=== PATIENT | male | born 1985 | race Caucasian/White ===

== ENCOUNTER 2020-06-28 23:03 | Emergency (ER) | payer MEDICAID, SELFPAY ==
[2020-06-28 23:29] VITALS: BP 125/94; PULSE 82; RESP 17; TEMP 37.1; O2SAT 96; BMI 27.2
[2020-06-28 23:51] LABS: Basophils # 0.1 K/mm3 (0-0.2); Basophils % 0.5 % (0.1-2.0); Eosinophils # 0.2 K/mm3 (0.0-0.4); Eosinophils % 1.4 % (0.1-12.0); Hematocrit 52.8 % (42.0-52.0); Hemoglobin 17.6 g/dL (14.1-18.0); Lymphocytes # 1.9 K/mm3 (0.7-4.5); Lymphocytes % 14.4 % (10-50); Mean Corpuscular HGB Conc 33.3 g/dL (31.8-35.4); Mean Corpuscular Hemoglobin 30.5 pg (27.0-31.2); Mean Corpuscular Volume 91.6 fl (80-94); Mean Platelet Volume 7.7 fl (7.4-10.4); Monocytes # 0.6 K/mm3 (0.1-1.0); Monocytes % 4.4 % (1.7-9.3); Neutrophils # 10.4 K/mm3 (1.8-7.8); Neutrophils % 79.2 % (37.0-80.0); Platelet Count 375 K/mm3 (142-424); Red Blood Count 5.76 M/mm3 (4.60-6.20); Red Cell Distribution Width 13.4 % (11.5-17.5); White Blood Count 13.2 K/mm3 (4.8-10.8)
[2020-06-28 23:56] LABS: Alanine Aminotransferase 93 U/L (12-78); Albumin Level 5.2 g/dl (3.5-5.0); Alkaline Phosphatase 128 U/L (38-126); Amylase 62 U/L (30-110); Anion Gap 16.2 mEq/L (5-15); Aspartate Amino Transferase 45 U/L (17-59); Bilirubin,Direct 0.1 mg/dl (0.0-0.4); Bilirubin,Indirect 0.7 mg/dL (0.0-0.9); Bilirubin,Total 0.8 mg/dl (0.2-1.3); Bilirubin,Unconjugated 0.7 mg/dL (0.0-1.1); Blood Urea Nitrogen 14 mg/dl (9-20); Calcium 10.6 mg/dl (8.4-10.2); Carbon Dioxide 26 mmol/L (22.0-30.0); Chloride 104 mmol/L (98-107); Creatinine Clearance Estimated 104 mL/min (50-200); Estimated Glomerular Filt Rate 69 ml/min (>60); GFR (African American) 83 ML/MIN (>60); Glucose 137 mg/dl (74-100); Lipase 89 U/L (23-300); Potassium 4.2 mmoL/L (3.5-5.1); Sodium 142 mmol/L (136-145); Total Protein,Serum 9.4 g/dl (6.3-8.2)
--- NOTE | 2020-06-29 01:08 | HMH.EDGENADL ---
ED Disposition Clinical Impression: Calculus of kidney Disposition: Home, Self-Care Condition on Discharge: Good Instructions: DI for Acute Abdominal Pain Prescriptions: methocarbamoL [Methocarbamol 500mg Tablet] 500 mg PO Q8HP PRN #10 tab PRN Reason: pain Transmission Status: Received by [facility] # Tamsulosin HCl [Flomax 0.4mg capsule] 0.4 mg PO HS #5 cap Transmission Status: Received by [facility] # Ketorolac Tromethamine [Toradol 10mg tablet] 10 mg PO Q6H 3 Days #10 tab Transmission Status: Received by [facility] # Referrals: Alex Rendon MD [Primary Care Provider] - - Critical Care Critical Care Time: No Attestation: On 06/28/20, the high probability of a clinically significant, sudden or life threatening deterioration of the following system(s) required my full and direct attention, intervention and personal management. The time I documented below is in addition to time spent performing reported procedures but includes the following listed in this critical care notation. Medical Decision Making - Medical Records Medical records reviewed: Yes: I reviewed the patient's medical records. - Nael Inquiry Pt receiving controlled substance: No Vital Signs: 06/28/20 23:29 Temperature 98.7 F Temperature Source Oral Pulse Rate [Right Brachial] 82 Respiratory Rate 17 Blood Pressure [Right Arm] 125/94 H Blood Pressure Mean [Right Arm] 104 Blood Pressure Source [Right Arm] Automatic Cuff Blood Pressure Position [Right Arm] Sitting 02 Sat by Pulse Oximetry 96 Oxygen Delivery Method Room Air - Lab Data Lab Results 06/28/20 23:41: WBC 13.2 H, RBC 5.76, Hgb 17.6, Hct 52.8 H, MCV 91.6, MCH 30.5, MCHC 33.3, RDW 13.4, Plt Count 375, MPV 7.7, Neut % (Auto) 79.2, Lymph % (Auto) 14.4, [place] % (Auto) 4.4, Eos % (Auto) 1.4, Baso % (Auto) 0.5, Neut # (Auto) 10.4 H, Lymph # (Auto) 1.9, [place] # (Auto) 0.6, Eos # (Auto) 0.2, Baso # (Auto) 0.1 06/28/20 23:41: Sodium 142, Potassium 4.2, Chloride 104, Carbon Dioxide 26, Anion Gap 16.2 H, BUN 14, Creatinine 1.20, Estimated Creat Clear 104, Estimated GFR 69, Est GFR ( Amer) 83, Glucose 137 H, Calcium 10.6 H, Total Bilirubin 0.8, Direct Bilirubin 0.1, Conjugated Bilirubin 0.0, Indirect Bilirubin 0.7, Unconjugated Bilirubin 0.7, AST 45, ALT 93 H, Alkaline Phosphatase 128 H, Total Protein 9.4 H, Albumin 5.2 H, Amylase 62, Lipase 89 06/29/20 01:57: Urine Color Yellow, Urine Appearance Clear, Urine pH 5.0, Ur Specific [place] 1.015, Urine Protein Negative, Urine Glucose (UA) Negative, Urine Ketones Negative, Urine Blood 2+, Urine Nitrate Negative, Urine Bilirubin Negative, Urine Urobilinogen 0.2, Ur Leukocyte Esterase Negative, Urine RBC 5-10, Amorphous Sediment Trace Result diagrams: 06/28/20 23:41 06/28/20 23:41 Orders (Tests/Meds): ED MEDICATIONS Generic Name Dose Route Start Last Admin Trade Name Freq PRN Reason Stop Dose Admin Sodium Chloride 1,000 mls @ 999 mls/hr 06/28/20 23:45 06/28/20 23:58 Sod Chlor 0.9% 1000ml Bag IV 06/29/20 00:45 999 mls/hr .Q1H1M SARAH Administration Sodium Chloride 8 ml 06/28/20 23:38 Sodium Chloride 0.9% 10ml Vial IV 07/28/20 23:37 NEEDED PRN dilute pepcid Discontinued Medications Generic Name Dose Route Start Last Admin Trade Name Freq PRN Reason Stop Dose Admin Famotidine 20 mg 06/28/20 23:38 06/28/20 23:57 Famotidine 20mg/2ml Vial IV 06/28/20 23:39 20 mg ONCE ONE Administration Iopamidol 75 ml 06/29/20 01:05 06/29/20 01:06 Iopamidol-370 (76%);100ml Bottle IV 06/29/20 01:06 75 ml ONCE ONE Administration Ketorolac Tromethamine 30 mg 06/28/20 23:38 06/28/20 23:57 Ketorolac 30mg/Ml Vial IV 06/28/20 23:39 30 mg ONCE ONE Administration Metoclopramide HCl 10 mg 06/28/20 23:38 06/28/20 23:57 Metoclopramide Hcl 10mg/2ml Vial IVP 06/28/20 23:39 10 mg ONCE ONE Administration Ondansetron HCl 4 mg 06/17
[2020-06-29 02:01] LABS: Microscopic, Urine URINE MICROSCOPIC (MICROSCOPIC)
[2020-06-29 02:07] LABS: Appearance,Urine CLEAR (Clear); Bilirubin,Urine Negative (Negative); Blood, Urine 2+ (Negative); Color,Urine YELLOW (Yellow); Glucose,Urine (UA) Negative (Negative); Ketones,Urine Negative (Negative); Leukocyte Esterase,Urine Negative (Negative); Nitrate,Urine Negative (Negative); Protein,Urine Negative (Negative); Specific Gravity, Urine 1.015 (1.005-1.030); Urobilinogen,Urine 0.2 EU/dl (0.2)
[2020-06-29 02:11] LABS: Amorphous Sediment,Urine Trace /lpf
[2020-06-29 02:15] VITALS: BP 124/79; PULSE 81; RESP 14; TEMP 36.5; O2SAT 97
--- NOTE | 2020-06-29 23:38 | CT_ITS ---
Procedure: CT ABDOMEN PELVIS W CON Referring Doctor: Andi Gómez Patient Age:35Y CLINICAL INDICATION: abd pain Left lower quadrant pain. Nausea, vomiting, diarrhea, COMPARISON: CT ABDPELW/O CT ABD PELVIS W/O CONTRAST from 09/17/2015 TECHNIQUE: IV contrast utilized-75 cc Isovue 370 No oral contrast given 1 Helical axial images obtained with sagittal and coronal reformats. All CT scans at the facility use one or more dose reduction, viz: automated exposure control, ma/kV adjustment per patient size (including targeted exams where dose is matched to indication, i.e. head), or iterative reconstruction technique. FINDINGS: Lower thorax: Minimal dependent atelectasis. Minimal linear scarring and atelectasis left CP angle Stable relative elevation right hemidiaphragm versus left Limited images heart heart show artifact from the pacer wire with heart upper normal in size Mild stable gynecomastia bilaterally ABDOMEN: Liver: Diffuse hepatic steatosis/fatty changes liver. No masses or biliary dilatation. No abnormal areas of enhancement Portal vein satisfactory Gallbladder: Nondistended. No radio opaque stones. Common duct normal Pancreas: . unremarkable, stable Spleen: unremarkable normal size Adrenals: unremarkable ------ tract . Left Kidney: Left Obstructive Uropathy: Left hydronephrosis/moderate left pelvocaliectasis due to a 7.5 mm x 8 mm X 10.5 mm length obstructing stone at the left UPJ. Also a tiny nonobstructive stable 3.5 mm times 2 mm calculus at upper pole left noted the The left ureter is otherwise unremarkable Right Kidney no calculi nor obstruction. Right ureter unremarkable. Note hyperdense blush to the renal pyramids right kidney but not the left-reflecting the delayed nephrogram and excretion on left a due to the obstructive uropathy.. PELVIS:. Urinary bladder: Nondistended. No obvious stones or masses. Reproductive unremarkable; prostate normal size. No free fluid pelvis; no adenopathy. ----GI tract --- Stomach and small bowel: Satisfactory. Nondistended. No obvious mass or thickening. Distal esophagus: Note additional fat seen today along the left left aspect of the distal esophagus and GE junction which may reflect developing hiatal hernia with fat passing through it. Appendix well visualized-the partial retrocecal appendix appears normal with no appendicitis There is note of a tiny calcified appendicolith 2.3 mm at base of the appendix is again noted as was seen 2016. Large bowel: Moderate stool throughout the right colon. Only a few scattered diverticuli. Upper normal wall thickness at proximal sigmoid and distal descending colon most likely reflect lack of distension Peritoneum: No abnormal fluid collections. No obvious inflammatory changes. No free air. Lymph nodes: No enlarged lymph nodes apparent. Vasculature: No eviden the the ce of abdominal aortic aneurysm. No retroperitoneal hemorrhage evident. Bones: No acute fracture the sclerotic margin bone lesion involving proximal femur and extending up to the base of lesser trochanter is again noted and appears similar to 2016 IMPRESSION: 1..Obstructive uropathy on left. Moderate left hydronephrosis due to a 8 mm diameter X 10.5 Mm length stone at the left UPJ 2..Additional tiny 2 x 3 mm nonobstructive calculus midportion left kidney 3.. Other stable observations: .. Normal appendix with stable tiny appendicolith at its base .. Few diverticuli throughout the colon with no diverticulitis evident. .. Hepatic steatosis Dictated by: Camden Garrett MD 06/29/2020 09:33 Camden Garrett MD in [place] 06/29/2020 09:33
== END 2020-06-29 02:18 | disposition home or self-care (01) ==
PROVIDERS: Emergency Provider Emergency Medicine; PCP Family Medicine
DX: N20.0 Calculus of kidney (principal); I10 Essential (primary) hypertension; K21.9 Gastro-esophageal reflux disease without esophagitis; F41.8 Other specified anxiety disorders; E78.5 Hyperlipidemia, unspecified; Z88.0 Allergy status to penicillin; Z88.2 Allergy status to sulfonamides; Z79.899 Other long term (current) drug therapy
CPT/HCPCS: 74177; 80048; 80076; 81001; 82150; 83690; 85025; 96375; 99283; J2405; Q9967

== ENCOUNTER → 2020-07-05 13:41 | Outpatient (CLI) | payer MEDICAID, SELFPAY ==
--- NOTE | 2020-07-05 13:45 | XR_ITS ---
PROCEDURE: XR KUB CLINICAL INDICATION: kidney stone COMPARISON: CT CT ABDOMEN PELVIS W CON from 06/29/2020 FINDINGS: Gas pattern-The bowel gas pattern is unremarkable. No obvious obstruction. The oval 7 mm calculus is again seen projecting over the pelvis left kidney and likely has not moved inferiorly when compared to the position on the recent CT scan 06/29/2020. There is a stable small calculus left-side of the lower pelvis likely a phlebolith. IMPRESSION: No significant change in the position of the left UPJ calculus Dictated by: Dr. Jony Redd MD 07/05/2020 14:58 Dr. Jony Redd MD in [place] 07/05/2020 14:58
== END ==
PROVIDERS: PCP Family Medicine; Visit Provider Urology
DX: N20.0 Calculus of kidney (principal)
CPT/HCPCS: 74018

== ENCOUNTER → 2020-07-25 11:11 | Outpatient (CLI) | payer MEDICAID, SELFPAY ==
[2020-07-25 11:48] LABS: Basophils # 0.1 K/mm3 (0-0.2); Basophils % 0.8 % (0.1-2.0); Eosinophils # 0.4 K/mm3 (0.0-0.4); Eosinophils % 4.6 % (0.1-12.0); Hematocrit 52.3 % (42.0-52.0); Hemoglobin 16.4 g/dL (14.1-18.0); Lymphocytes # 2.8 K/mm3 (0.7-4.5); Lymphocytes % 34.7 % (10-50); Mean Corpuscular HGB Conc 31.3 g/dL (31.8-35.4); Mean Corpuscular Hemoglobin 29.9 pg (27.0-31.2); Mean Corpuscular Volume 95.6 fl (80-94); Mean Platelet Volume 8.1 fl (7.4-10.4); Monocytes # 0.6 K/mm3 (0.1-1.0); Neutrophils # 4.3 K/mm3 (1.8-7.8); Neutrophils % 52.8 % (37.0-80.0); Platelet Count 313 K/mm3 (142-424); Red Blood Count 5.48 M/mm3 (4.60-6.20); Red Cell Distribution Width 13.2 % (11.5-17.5); White Blood Count 8.1 K/mm3 (4.8-10.8)
[2020-07-25 12:10] LABS: Anion Gap 12.6 mEq/L (5-15); Blood Urea Nitrogen 17 mg/dl (9-20); Calcium 9.7 mg/dl (8.4-10.2); Carbon Dioxide 29 mmol/L (22.0-30.0); Chloride 105 mmol/L (98-107); Estimated Glomerular Filt Rate 76 ml/min (>60); GFR (African American) 92 ML/MIN (>60); Glucose 94 mg/dl (74-100); Potassium 4.6 mmoL/L (3.5-5.1); Sodium 142 mmol/L (136-145)
[2020-07-25 12:26] LABS: Coronavirus 19 IgG Antibody Negative (Negative); Coronavirus 19 IgM Antibody Negative (Negative)
== END ==
PROVIDERS: Visit Provider Urology
DX: Z01.818 Encounter for other preprocedural examination (principal); Z11.52 Encounter for screening for COVID-19; N20.0 Calculus of kidney
CPT/HCPCS: 36415; 80048; 85025; 86328

== ENCOUNTER 2020-07-26 07:12 | Day surgery (SDC) | payer MEDICAID, SELFPAY ==
[2020-07-24 12:24] VITALS: BMI 28.7
[2020-07-26] VITALS (11 sets, daily range): BP systolic 102–123; BP diastolic 65–85; PULSE 79–95; RESP 12–18; TEMP 36.1–43; O2SAT 94–98
--- NOTE | 2020-07-26 09:40 | HMH.ANESCL ---
[facility] Anesthesia Checklist - Structural Data Admitted From: Home Planned Operative Procedure/s: eswl Consent for Planned Operative Procedure(s) Verified: Yes - Additional verifications Anesthesia Reactions: No Hx Blood Transfusions: No Blood Transfusion Reaction: No - Airway Assessment C-Spine Mobility Assessed: Yes TMJ Mobility Assessed: Yes Dentition: Good Dentition - Neurological Assessment Level of Consciousness: Awake, Alert, Appropriate - Anesthesia Plan Anesthesia Risk discussed: Yes Anesthesia Plan: Verified ASA Class: III Anesthesia Type: General [facility] History I have reviewed the patient's past medical history: Yes Medical History: Reports:: Anxiety, Atrial Fibrillation, Depression, Gastroesophageal Reflux Disease(GERD), Hyperlipidemia, Hypertension, Kidney Stones Denies:: Cancer, Diabetes Mellitus Type 1, Diabetes Mellitus Type 2, Internal Pacemaker, MRSA, Seizures *Have you ever received a pneumonia vaccine?: No *Have you received a flu vaccine this season?: No Other Medical History: Denies: Blood Transfusion Reaction Anesthesia experience/problems:: none Laterality Cases: Bilateral: Tonsillectomy Other Surgeries: Yes: No Previous Surgery, Other. No: Pacemaker Amputation: No Fractures: No - *Social History Last grade of school completed: Some college Smoking Status: Never smoker Alcohol Intake: never Substance Use Type: denies use *Occupational Status:: employed Housing: house Household Members: none *Travel in the last 8 weeks: None - Psychiatric History Pschychiatric History:: Reports:: Anxiety, Depression Family Hx:: Cancer, Heart Attack
--- NOTE | 2020-07-26 10:45 | HMH.ANESI ---
[facility] Anesthesia Record Part I Intake, IV Amount: 500 Estimated blood loss (mL): 0 Urine output (mL): 0 Blood Pressure: 116/85 SaO2: 95 Pulse Rate: 84 Respiratory Rate: 12 Temperature: 98.5 F Patient is:: Awake, Stable Stable to PACU at:: 10:40
--- NOTE | 2020-07-26 10:50 | P.OP_ITS ---
Date of procedure: 07/26/20 Pre-op Diagnosis:: Left kidney stone, 10 x 8 mm Post-op Diagnosis:: Same Procedure performed:: Left ESWL Surgeon:: Geovanny Tyler MD TRANSMISSION REPAIRER:: John Solis Anesthesia: LMA Estimated blood loss (mL): 0 Clinical Note:: 35-year-old white male with history of nephrolithiasis with recent left renal colic. CT scan shows a 10 x 8 mm stone at the left UPJ at the time of the scan. Follow-up KUB revealed the stone to be in left lower pole. He presents today for urologic management. Operative findings:: 10 x 8 mm stone is well calcified and appears to be in the renal pelvis. Operative note:: Patient taken to the operating room after informed consent was obtained. Is placed on the operating table and general anesthesia administered. Preoperative antibiotics and sequential compression devices placed. He was then padded and positioned appropriately with the knees flexed and a bump under them. The lithotripter was brought into position and focused onto the stone at the F2. 3000 shockwaves been delivered with good fragmentation of the stone on fluoroscopy. Patient tolerated procedure well there are no complications. He was discharged to the recovery in stable condition. We will see him back in 1 week with a KUB. Prescription for [place] was E scribed. Condition: stable Disposition: PACU Specimens:: None Complications:: None
--- NOTE | 2020-07-26 15:30 | P.PN_ITS ---
[facility] Anesthesia Record Part II Discharge Time: 11:10 Destination: [facility] PACU nurse assessment reviewed?: Yes Patient Condition:: Good Anesthesia Complications:: None Swallowing reflex intact?: Yes Cyanosis?: No Blood Pressure: 123/77 Pulse Rate: 83 Temperature: 97.2 F Mental Status: Alert & Oriented Pain level:: 0 Nausea and/or vomitting:: None Intake, IV Amount: 1,200
== END 2020-07-26 11:45 | disposition home or self-care (01) ==
LOC: OR 07:13
PROVIDERS: PCP Family Medicine; Visit Provider Urology
PROC: (CPT 50590; principal; 2020-07-26 08:00)
DX: N20.0 Calculus of kidney (principal); K21.9 Gastro-esophageal reflux disease without esophagitis; I10 Essential (primary) hypertension; E78.5 Hyperlipidemia, unspecified; I48.91 Unspecified atrial fibrillation; F41.9 Anxiety disorder, unspecified; F32.9 Major depressive disorder, single episode, unspecified; Z95.810 Presence of automatic (implantable) cardiac defibrillator; Z88.0 Allergy status to penicillin; Z88.2 Allergy status to sulfonamides; Z79.899 Other long term (current) drug therapy
CPT/HCPCS: 50590; 96374; J1956; J2405

== ENCOUNTER → 2020-07-29 14:06 | Outpatient (CLI) | payer MEDICAID, SELFPAY ==
--- NOTE | 2020-07-29 14:10 | XR_ITS ---
PROCEDURE: XR KUB CLINICAL INDICATION: kidney stone Left-sided pain COMPARISON: CT CT ABDOMEN PELVIS W CON from 06/29/2020 FINDINGS: There are multiple small stone fragments overlying the medial aspect of the left kidney and may be result lithotripsy left proximal ureteral stone. Stone fragments are also noted in the left pelvic region consistent with stones in the distal left ureter. A 4 mm stone is present overlying the upper pole of the left kidney. IMPRESSION: There are now multiple left ureteral stone fragments proximally and distally. Previously noted prominent stone in the left UPJ no longer apparent. Suspect interval lithotripsy. Dictated by: Leopoldo Sharp MD 07/29/2020 14:34 Leopoldo Sharp MD in [place] 07/29/2020 14:34
== END ==
PROVIDERS: PCP Family Medicine; Visit Provider Urology
DX: N20.0 Calculus of kidney (principal)
CPT/HCPCS: 74018

== ENCOUNTER 2020-07-29 17:19 | Observation (INO) | payer MEDICAID, SELFPAY ==
[2020-07-29] VITALS (16 sets, daily range): BP systolic 103–146; BP diastolic 68–95; PULSE 76–108; RESP 14–20; TEMP 36.5–37; O2SAT 94–99; BMI 30.1
--- NOTE | 2020-07-29 15:25 | FL_ITS ---
PROCEDURE: FL URETHROCYSTOGRAM RETRO CLINICAL INDICATION: C-ARM GUIDANCE FOR URETEROSCOPY WITH STONE EXTRACTION COMPARISON: No exams were available for comparison FINDINGS: Fluoroscopy time: 48 seconds multiple images are submitted during stone extraction and left-sided stent placement. IMPRESSION: Status post left-sided stone extraction and stent placement with fluoroscopic guidance Dictated by: Leopoldo Sharp MD 07/30/2020 08:51 Leopoldo Sharp MD in [place] 07/30/2020 08:51
--- NOTE | 2020-07-29 17:34 | P.PN_ITS ---
[facility] Anesthesia Checklist - Patient Identification Patient Identification: Arm Band - Structural Data Admitted From: Home Planned Operative Procedure/s: URETEROSCOPY WITH STONE EXTRACTION Consent for Planned Operative Procedure(s) Verified: Yes - Additional verifications Anesthesia Reactions: No Hx Blood Transfusions: No Blood Transfusion Reaction: No - Airway Assessment C-Spine Mobility Assessed: Yes TMJ Mobility Assessed: Yes Dentition: Good Dentition - Neurological Assessment Level of Consciousness: Awake Hx Seizures: No Numbness or tingling in extremities: No - Anesthesia Plan Anesthesia Risk discussed: Yes Anesthesia Plan: Verified ASA Class: III Anesthesia Type: General [facility] History I have reviewed the patient's past medical history: Yes Medical History: Reports:: Anxiety, Atrial Fibrillation, Depression, Gastroesophageal Reflux Disease(GERD), Hyperlipidemia, Hypertension, Kidney Stones Denies:: Cancer, Diabetes Mellitus Type 1, Diabetes Mellitus Type 2, Internal Pacemaker, MRSA, Seizures *Have you ever received a pneumonia vaccine?: No *Have you received a flu vaccine this season?: Yes Other Medical History: Denies: Blood Transfusion Reaction Anesthesia experience/problems:: None Laterality Cases: Bilateral: Tonsillectomy Other Surgeries: Yes: No Previous Surgery, Hysterectomy-Partial, Other. No: Pacemaker Amputation: No Fractures: No - *Social History Last grade of school completed: Advanced degree Smoking Status: Never smoker Alcohol Intake: never Substance Use Type: denies use *Occupational Status:: student Housing: house Household Members: family *Travel in the last 8 weeks: None - Psychiatric History Pschychiatric History:: Reports:: Anxiety, Depression Family Hx:: Cancer, Heart Attack
--- NOTE | 2020-07-29 18:18 | P.PN_ITS ---
[facility] Anesthesia Record Part I Intake, IV Amount: 1,000 Estimated blood loss (mL): 0 Urine output (mL): 0 Blood Pressure: 114/68 SaO2: 97 Pulse Rate: 92 Respiratory Rate: 14 Temperature: 97.8 F Patient is:: Drowsy, Stable Stable to PACU at:: 18:15
--- NOTE | 2020-07-29 18:37 | HMH.OPNOTE ---
Date of procedure: 07/29/20 Pre-op Diagnosis:: Left ureteral stone with Steinstrasse Post-op Diagnosis:: Same Procedure performed:: Left ureteroscopy, laser lithotripsy, stone extraction and left stent placement Surgeon:: Geovanny Tyler MD COMMERCIAL [employer] ESTATE ASSISTANT:: Other (Keny Wise) Anesthesia: GETA Estimated blood loss (mL): 0 Clinical Note:: Patient is 35-year-old white male status post left ESWL of a 10 mm left renal pelvic stone 3 days ago. Patient began experiencing some left renal colic associated nausea vomiting later that day. He has managed to get through the weekend but presents today with continued left flank pain, nausea and vomiting. KUB shows a 5 mm stone at the left UVJ with small stones behind it indicating a Steinstrasse. Operative findings:: Patient with 5 mm stone at the left UVJ with small stones behind it. Operative note:: Patient taken to the operating room after informed consent was obtained. Is placed on the operating table in the supine position and general anesthesia administered. Preoperative antibiotics and sequential compression devices placed. He was then placed into the dorsal lithotomy position prepped and draped in standard surgical fashion. 22 Adiel passed into the urethra and into the bladder without difficulty. The bladder was examined in a systematic fashion. There is no evidence of mucosal abnormalities, stones, diverticula or trabeculation. Ureteral orifices in their normal anatomic position. Clear efflux of urine was noted from the right side that no urine noted from the left side. A 5 [place] ureteral catheter was passed into the left ureteral orifice and a guidewire was passed by the radiopaque stone. We then removed the cystoscope and passed our semirigid ureteroscope into the ureter and up to the level of the stone but there was a Synotic segment below the stone and the ureteroscope was removed and our 4 x 15 mm balloon dilator passed over the guidewire and under fluoroscopy passed up to the level of the stricture. The balloon then dilated to 12 orestes for 2 minutes. The balloon was then deflated and removed and our semirigid ureteroscope was passed back into the left ureter and up to the level of the stone. A 200 nm laser fiber was used to fragment the stone into smaller pieces. The stone was very hard. Once the stone fragments were small enough we removed the laser fiber and passed our 2.4 [place] nitinol stone basket and all the significant stone fragments were extracted. The ureteroscope and removed and our cystoscope was backloaded over the guidewire and a 4.8 x 26 [place] stent was passed over the guidewire. Under fluoroscopy the guidewire removed and a good curl was noted proximally and distally. The string was left on for later removal. Patient tolerated seizure well there are no complications. Condition: stable Disposition: PACU Specimens:: None Complications:: None
--- NOTE | 2020-07-29 19:11 | PC.NURSE ---
1844-detailed report called to RAMILA Brunner 1847-pt transported to 2nd floor room 200 via stetcher w/valentine rails up and left in care of RAMILA Brunner, pt transferred to hospital bed upon arrival to floor, bed locked in lowest position, vss, pt stable
[2020-07-30] VITALS (7 sets, daily range): BP systolic 107–138; BP diastolic 69–85; PULSE 74–98; RESP 16–19; TEMP 36.5–37.1; O2SAT 93–973; BMI 29.5
--- NOTE | 2020-07-30 03:34 | PC.NURSE ---
Pt A&O x4 and has slept on and off through the night. Pt has c/o pain in genital area and upon movement. Pt only wanted ibuprofen for pain, given twice per mar. Pt voiding in toilet, urine is red brown tinged and has had two small stones present. Pt has c/o of minimal pain while voiding. lungs CTA, on room air. bowel sounds x4, abd soft and nontender. Pt able to ambulate independently. Pt tolerating diet well. VSS, call light in reach, no concerns at this time.
--- NOTE | 2020-07-30 07:26 | P.CONPHA_ITS ---
[facility] Pharmacy VTE Monitoring - Patient Demographics Admission date: 07/29/20 Report Date: 07/30/20 Time: 07:26 Allergies/Adverse Reactions: Patient Allergies Penicillins [PENICILLINS] Allergy (Unknown, Verified 07/29/20 14:40) Sulfa (Sulfonamide Antibiotics) [SULFA (SULFONAMIDE ANTIBIOTICS)] Allergy (Unknown, Verified 07/29/20 14:40) Height: 1.78 m Weight: 93.44 kg - VTE Risk Was VTE Risk Assessment Performed: Yes VTE Score: 2 VTE Risk Level: Low Risk Clinical Trial Participant: No - Prophylaxis VTE Prophylaxis Ordered?: Yes Types of VTE Prophylaxis: IPCS Knee High
--- NOTE | 2020-07-30 07:28 | HMH.PHAINT ---
home medication list verified using list from [facility]
--- NOTE | 2020-07-30 10:46 | P.PN_ITS ---
[facility] Anesthesia Record Part II Discharge Time: 18:45 Destination: Medical Surgical Department PACU nurse assessment reviewed?: Yes Patient Condition:: Good Anesthesia Complications:: None Swallowing reflex intact?: Yes Cyanosis?: No Blood Pressure: 107/72 Pulse Rate: 98 Temperature: 97.7 F Mental Status: Alert & Oriented Pain level:: 0 Nausea and/or vomitting:: None Intake, IV Amount: 0
--- NOTE | 2020-07-30 11:08 | P.PN_ITS ---
Internal Medicine - PN: Subj *Date: 07/30/20 *Time: 11:08 Interval history: Patient is feeling much better after ureteroscopy stone extraction yesterday. He is afebrile and vital signs stable. He states his appetite has returned and he is no longer having any nausea or vomiting. Exam Vital signs and Labs for Last 24 Hours: Temp Pulse Resp BP Pulse Ox 97.7 F 98 H 18 107/72 L 93 L 07/30/20 10:47 07/30/20 10:47 07/30/20 07:34 07/30/20 10:47 07/30/20 07:34 I & O for Last 24 hours: Intake & Output 07/27/20 07/28/20 07/29/20 07/30/20 22:59 23:59 23:59 23:59 Intake Total 1000 / 1000 360 / 360 Output Total Balance 1000 / 999 359 / 359 Weight 95.254 kg 93.44 kg Microbiology Reports for the Last 24 Hours: Microbiology 07/29/20 17:17 Nasopharyngeal Coronavirus COVID-19 PCR - Final - Constitutional no acute distress - *Routine HEENT Exam Head: Present: normocephalic Eye: Present: EOMI, PERRL ENT: Present: mucous membranes moist - *Routine Neck Exam Absent: lymphadenopathy - *Routine Respiratory Exam Absent: accessory muscle use - *Routine Cardiovascular Exam Absent: JVD - *Routine Abdominal Exam Absent: tenderness - *Routine Extremities Exam Absent: cyanosis, clubbing, edema - *Routine Skin Exam Present: warm. Absent: rash - *Routine Neurological Exam Present: alert, oriented X3 Assessment and Plan (1) Ureteral calculi Status: Acute Category: Medical Code(s): N20.1 - Calculus of ureter Postop day 1 status post left ureteroscopy and laser lithotripsy and stone ext raction with left-sided stent placement. Patient doing well this morning and pain is resolved and his appetite has improved. He is afebrile and vital signs are stable. We discussed stent precautions as he has a string on the end of the stent. We will discharge home and return to the office in a couple of days for stent removal. Prescription for Cipro 500 mg p.o. twice daily for 3 days given at discharge.
--- NOTE | 2020-07-30 11:29 | P.DS_ITS ---
General - General Admission date:: 07/29/20 Discharge date: 07/30/20 HPI HPI: Patient seen in the office yesterday with left flank pain of 3-day duration. He had underwent left ESWL on July 26. KUB showed a 5 mm obstructing stone at the left distal ureter with some small stones behind it. Patient taken to the operating room same day for left ureteroscopy, laser lithotripsy, stone extraction and left stent placement. Postop day 1 he felt well and was ready for discharge. Hospital Course Hospital Course: Patient admitted through same-day surgery and underwent left ureteroscopy, laser lithotripsy, stone extraction and left stent placement. Postop day 1 he was doing well and was ready for discharge. Objective Vital signs: Temp Pulse Resp BP Pulse Ox 98.2 F 74 18 112/69 97 07/30/20 11:19 07/30/20 11:19 07/30/20 11:19 07/30/20 11:19 07/30/20 11:19 no acute distress - *Routine HEENT Exam Head: Present: normocephalic Eye: Present: EOMI, PERRL ENT: Present: mucous membranes moist - *Routine Neck Exam Present: supple - *Routine Respiratory Exam Absent: accessory muscle use - *Routine Cardiovascular Exam Absent: JVD - *Routine Abdominal Exam Absent: tenderness - *Routine Extremities Exam Absent: cyanosis, clubbing, edema - *Routine Skin Exam Present: warm. Absent: rash DS: Diagnosis - Discharge Diagnosis (1) Ureteral calculi Status: Acute Problem details: Patient underwent left ureteroscopy stone extraction and left stent placement on . He was admitted overnight for observation and on postop day 1 was feeling well and was ready for discharge. Plan is to discharge home today and see her back in 2 days for stent removal Discharge Plan - Patient Discharge Instructions - Follow up Plan Follow up with: Geovanny Tyler MD [Staff Physician] - 08/01/20 10:15 am Home Medications: Home Medications Medication Instructions Recorded Confirmed Type atorvastatin 20 mg tablet 20 mg PO DAILY 03/07/20 07/29/20 History metoprolol succinate 100 mg 100 mg PO DAILY 03/07/20 07/29/20 History tablet,extended release 24 hr Duloxetine HCl [Cymbalta] 60 mg PO DAILY 07/24/20 07/29/20 History Omeprazole 40 mg PO DAILY 07/24/20 07/29/20 History Hydrocod/Acet 5/325 mg [[place] 1 tab PO Q4HP PRN #10 tab 07/26/20 07/29/20 Rx 5/325mg tablet] Prescriptions/Medication Reconciliation: Continued atorvastatin 20 mg tablet 20 mg PO DAILY Duloxetine HCl [Cymbalta] 60 mg PO DAILY Hydrocod/Acet 5/325 mg [[place] 5/325mg tablet] 1 tab PO Q4HP PRN #10 tab PRN Reason: Moderate To Severe Pain Omeprazole 40 mg PO DAILY No Action metoprolol succinate 100 mg tablet,extended release 24 hr 100 mg PO DAILY - Problem Reconciliation Problems Reviewed?: Yes
--- NOTE | 2020-08-05 12:55 | HMH.HP ---
*Admission Date: 07/29/20 *Chief complaint: Left renal colic secondary to a leading stone fragment from ESWL *History of present illness: Patient is status post a left ESWL 3 days ago. Patient began having left flank pain the evening of surgery. He got through the weekend with his pain medication but presents this morning with renal colic associated with nausea and vomiting. KUB reveals a leading 4 mm stone at the left distal ureter with some smaller stones behind it. He is afebrile. We discussed proceeding with left ureteroscopy and stone extraction today. [facility] History Medical History: Reports:: Anxiety, Atrial Fibrillation, Congenital Heart Disease, Depression, Diabetes Mellitus Type 2, Gastroesophageal Reflux Disease(GERD), Hyperlipidemia, Hypertension, Kidney Stones Denies:: Cancer, Diabetes Mellitus Type 1, Internal Pacemaker, MRSA, Seizures *Have you ever received a pneumonia vaccine?: No *Have you received a flu vaccine this season?: No Other Medical History: Denies: Blood Transfusion Reaction Anesthesia experience/problems:: None Laterality Cases: Bilateral: Tonsillectomy Other Surgeries: Yes: No Previous Surgery, Hysterectomy-Partial, Other. No: Pacemaker Amputation: No Fractures: No - *Social History Last grade of school completed: Some college Smoking Status: Never smoker Alcohol Intake: never Substance Use Type: denies use *Occupational Status:: employed, student Housing: house Household Members: family *Travel in the last 8 weeks: None - Psychiatric History Pschychiatric History:: Reports:: Anxiety, Depression Family Hx:: Cancer, Heart Attack Review of Systems - Review of Systems Review of systems:: pertinent systems reviewed and negative unless documented below - Constitutional Denies fever(s) - Eyes Denies blind spots - ENT Denies dizziness - *Cardiovascular Denies chest pain - *Respiratory Denies shortness of breath with activity - *Gastrointestinal Reports nausea, Reports vomiting - *Genitourinary Denies difficulty urinating, Denies painful urination - *Musculoskeletal Denies abnormal walking - Integumentary/Breasts Denies hair loss - *Neurologic Denies abnormal walking Meds Home Medications Medication Instructions Recorded Confirmed Type atorvastatin 20 mg tablet 20 mg PO DAILY 03/07/20 08/01/20 History metoprolol succinate 100 mg 100 mg PO DAILY 03/07/20 08/01/20 History tablet,extended release 24 hr Duloxetine HCl [Cymbalta] 60 mg PO DAILY 07/24/20 08/01/20 History Omeprazole 40 mg PO DAILY 07/24/20 08/01/20 History Hydrocod/Acet 5/325 mg [[place] 1 tab PO Q4HP PRN #10 tab 07/26/20 08/01/20 Rx 5/325mg tablet] Allergies Allergy/AdvReac Type Severity Reaction Status Date / Time Penicillins [PENICILLINS] Allergy Unknown Verified 08/01/20 10:10 Sulfa (Sulfonamide Allergy Unknown Verified 08/01/20 10:10 Antibiotics) [SULFA (SULFONAMIDE ANTIBIOTICS)] Exam Vital signs and Labs for Last 24 Hours: Temp Pulse Resp BP Pulse Ox 98.2 F 74 18 112/69 97 07/30/20 11:19 07/30/20 11:19 07/30/20 11:19 07/30/20 11:19 07/30/20 11:19 - *Routine HEENT Exam Head: Present: normocephalic Eye: Present: EOMI, PERRL ENT: Present: mucous membranes moist - *Routine Neck Exam Present: supple. Absent: lymphadenopathy - *Routine Respiratory Exam Present: CTA bilaterally - *Routine Cardiovascular Exam Present: RRR - *Routine Abdominal Exam Present: tenderness - *Routine Extremities Exam Absent: cyanosis, clubbing, edema - *Routine Skin Exam Present: warm. Absent: rash - *Routine Neurological Exam Present: alert, oriented X3 Assessment and Plan (1) Ureteral calculi Problem details: Patient underwent left ureteroscopy stone extraction and left stent placement on 315. He was admitted overnight for observation and on postop day 1 was feeling well and was ready for discharge. Plan is to discharge home today and see her
== END 2020-07-30 12:45 | disposition home or self-care (01) ==
LOC: 2ND 17:20
PROVIDERS: Admitting Provider Urology; PCP Family Medicine; Visit Provider Urology
PROC: (CPT 52352; principal; 2020-07-29 15:45)
DX: N20.0 Calculus of kidney (principal); N13.5 Crossing vessel and stricture of ureter without hydronephrosis; I10 Essential (primary) hypertension; Z88.0 Allergy status to penicillin; Z88.2 Allergy status to sulfonamides; I48.91 Unspecified atrial fibrillation
CPT/HCPCS: 52356; 52352; 52344; 74450; 76000; 96374; C2617; G0378; J0330; J1956; J2405; Q9967; U0003

== ENCOUNTER → 2020-08-01 09:18 | Outpatient (CLI) | payer MEDICAID, SELFPAY ==
--- NOTE | 2020-08-01 09:20 | XR_ITS ---
PROCEDURE: XR KUB CLINICAL INDICATION: kidney stone Left-sided pain COMPARISON: CT CT ABDOMEN PELVIS W CON from 06/29/2020 FINDINGS: There is a left ureteral stent in place. A small calcific density is present overlying the stent at the L3 region measuring 3 mm and may be due to small ureteral calculus. There is a small stone in the mid aspect of the left kidney at 3 mm. IMPRESSION: Left ureteral stent in place. Suspect small stone in the L3 region of stent with left nephrolithiasis also noted Dictated by: Leopoldo Sharp MD 08/01/2020 18:14 Leopoldo Sharp MD in OV 08/01/2020 18:14
== END ==
PROVIDERS: PCP Family Medicine; Visit Provider Urology
DX: N20.0 Calculus of kidney (principal)
CPT/HCPCS: 74018

== ENCOUNTER 2021-01-07 14:40 | Emergency (ER) | payer MEDICAID, SELFPAY ==
[2021-01-07 16:25] VITALS: BP 135/90; PULSE 79; RESP 16; TEMP 36.9; O2SAT 99; BMI 28.7
--- NOTE | 2021-01-07 16:35 | HMH.EDUTC ---
[facility] [place] Disposition Clinical Impression: Exposure to COVID-19 virus Disposition: Home, Self-Care Condition on Discharge: Good Instructions: DI for COVID-19 (Suspected or Confirmed ), Preventing the Spread of Coronavirus Discharge Instructions Additional Instructions: Drink plenty of fluids. Take tylenol for pain or fever. Return if you begin to have difficulty breathing. Follow up with your regular doctor. GO TO THE ER FOR ANY WORSENING SYMPTOMS Quarantine until you know the results of your covid-19 test. If it is positive, the health department should call you and give you further instructions about your length of Quarantine and other things. Notify your school or workplace of your results and follow their instructions regarding return to work/school. Referrals: Alex Rendon MD [Primary Care Provider] - Forms: Work/School Release Time of Disposition: 16:38 Medical Decision Making - Medical Records Medical records reviewed: No: I reviewed the patient's medical records. - Nael Inquiry Pt receiving controlled substance: No Vital Signs: 01/07/21 16:25 01/07/21 16:55 Temperature 98.4 F 98.5 F Temperature Source Oral Pulse Rate 81 Pulse Rate [Left] 79 Respiratory Rate 16 18 Blood Pressure 139/87 Blood Pressure [Right Arm] 135/90 Blood Pressure Mean [Right Arm] 105 02 Sat by Pulse Oximetry 99 [facility] [place] HPI - General Stated complaint: exposure Time Seen by Provider: 01/07/21 16:35 Mode of Arrival: Ambulatory Source of Information: Patient Limitations: No Limitations Description of Symptoms (Recalled from Triage Doc. by RN): pt was exposed to a covid positive pt on 01/05. pt is asymptomatic. HEENT Symptoms (Recalled from RN notes): No Resp Symptoms (Recalled from RN notes): No Skin Symptoms (Recalled from RN notes): No MS Symptoms (Recalled from RN notes): No Functional Status (Recalled from RN notes): na - History of Present Illness Provider Complaint: He was exposed to covid 4 days ago. He needs a covid test for his job. He denies any symptoms so far. - Related Data Home Medications Medication Instructions Recorded Confirmed atorvastatin 20 mg tablet 20 mg PO DAILY 03/07/20 09/26/20 metoprolol succinate 100 mg 100 mg PO DAILY 03/07/20 09/26/20 tablet,extended release 24 hr Duloxetine HCl [Cymbalta] 60 mg PO DAILY 07/24/20 09/26/20 Omeprazole 40 mg PO DAILY 07/24/20 09/26/20 Allergies Allergy/AdvReac Type Severity Reaction Status Date / Time Penicillins [PENICILLINS] Allergy Unknown Verified 09/26/20 10:58 Sulfa (Sulfonamide Allergy Unknown Verified 09/26/20 10:58 Antibiotics) [SULFA (SULFONAMIDE ANTIBIOTICS)] - Worker's Comp Is this a Worker's Comp case?: No [facility] History - Hepatitis A Screen Drug use history?: No High risk sexual behaviors?: No History of sexually transmitted infection?: No Currently employed?: No Childcare worker?: No Do you have indoor plumbing?: Yes Do you have electricity?: Yes Attestation statement:: This patient has been screened for Hepatitis A risk factors. I have reviewed the patient's past medical history: Yes Medical History: Reports:: Anxiety, Atrial Fibrillation, Congenital Heart Disease, Depression, Diabetes Mellitus Type 2, Gastroesophageal Reflux Disease(GERD), Hyperlipidemia, Hypertension, Kidney Stones Denies:: Cancer, Diabetes Mellitus Type 1, Internal Pacemaker, MRSA, Seizures Other Medical History: Denies: Blood Transfusion Reaction Laterality Cases: Bilateral: Tonsillectomy Other Surgeries: Yes: No Previous Surgery, Cardiac Surgery, Hysterectomy-Partial, Other. No: Pacemaker Amputation: No Fractures: No Comment: kidney stone surgery, defibrillator - Social History Smoking Status: Never smoker Alcohol Intake: never Substance Use Type: denies use Occupational Status: employed, student Housing: house Household Members: family - Psychiatric History Pschychiatric History:: Reports:: Anxi
[2021-01-07 16:55] VITALS: BP 139/87; PULSE 81; RESP 18; TEMP 36.9
== END 2021-01-07 16:55 | disposition home or self-care (01) ==
PROVIDERS: Emergency Provider Nurse Practitioner Family; PCP Family Medicine
DX: Z20.822 Contact with and (suspected) exposure to COVID-19 (principal); F41.8 Other specified anxiety disorders; E11.9 Type 2 diabetes mellitus without complications; I48.0 Paroxysmal atrial fibrillation; K21.9 Gastro-esophageal reflux disease without esophagitis; E78.5 Hyperlipidemia, unspecified; I10 Essential (primary) hypertension; Z87.442 Personal history of urinary calculi; Z79.899 Other long term (current) drug therapy
CPT/HCPCS: 99202; G0463; U0003

== ENCOUNTER → 2021-06-03 10:08 | Outpatient (CLI) | payer MEDICAID, SELFPAY | PROVIDERS: Visit Provider Nurse Practitioner | DX: U07.1 COVID-19 (principal) | CPT/HCPCS: C9803; U0003; U0005 ==

== ENCOUNTER 2021-08-14 13:11 | Emergency (ER) | payer MEDICAID, SELFPAY ==
[2021-08-14 13:20] VITALS: BP 133/82; PULSE 75; RESP 20; TEMP 36.6; O2SAT 98; BMI 28.7
[2021-08-14 15:16] VITALS: BP 117/75; PULSE 93; RESP 18; TEMP 37.4; O2SAT 97; BMI 28.7
--- NOTE | 2021-08-14 15:39 | HMH.EDUTC ---
[facility] [place] Clinical Impression: Viral syndrome Sinusitis Qualifiers: Sinusitis location: unspecified location Chronicity: acute Recurrence: non-recurrent Qualified Code(s): J01.90 - Acute sinusitis, unspecified Disposition: Home, Self-Care Condition on Discharge: Good Instructions: DI for Sinusitis Additional Instructions: Drink plenty of fluids. Take tylenol or ibuprofen for pain or fever. Take the medications as directed. Follow up with your regular doctor. GO TO THE ER FOR ANY WORSENING SYMPTOMS The cough medication (promethazine dm) will make you drowsy, so don't drive or operate heavy machinery after taking it. Prescriptions: Promethazine/Dextromethorphan [Promethazine-Dm Syrup] 5 ml PO Q6HP PRN #240 ml PRN Reason: Cough Transmission Status: Received by [facility] #[id number] Benzonatate [Benzonatate 100mg cap] 100 mg PO TIDP PRN #30 cap PRN Reason: Cough Transmission Status: Received by [facility] #[id number] Azithromycin [Z-Sushant 250mg Tab*] 250 mg PO UD DOSE PK #6 tab Transmission Status: Received by [facility] #[id number] Referrals: Alex Renodn MD [Primary Care Provider] - Time of Disposition: 16:21 Medical Decision Making - Medical Records Medical records reviewed: No: I reviewed the patient's medical records. - Nael Inquiry Pt receiving controlled substance: No Vital Signs: 08/14/21 13:20 08/14/21 15:16 08/14/21 16:27 Temperature 97.8 F 99.3 F 99.3 F Temperature Source Oral Oral Oral Pulse Rate 93 H Pulse Rate [Left Radial] 75 93 H Respiratory Rate 20 18 18 Blood Pressure 117/75 Blood Pressure [Right Arm] 133/82 117/75 Blood Pressure Mean [Right Arm] 99 89 Blood Pressure Source Automatic Cuff Blood Pressure Source [Right Arm] Automatic Cuff Automatic Cuff Blood Pressure Position Sitting Blood Pressure Position [Right Arm] Sitting Sitting 02 Sat by Pulse Oximetry 98 97 Oxygen Delivery Method Room Air Room Air Room Air - Lab Data Lab Results 08/14/21 16:04: Influenza Type A Ag Negative, Influenza Type B Ag Negative [facility] [place] - General Stated complaint: head cold sore throat fever Time Seen by Provider: 08/14/21 15:39 Mode of Arrival: Ambulatory Source of Information: Patient Limitations: No Limitations Description of Symptoms (Recalled from Triage Doc. by RN): Pt states that he has lost his voice, runny nose, and congestion. HEENT Symptoms (Recalled from RN notes): Yes Resp Symptoms (Recalled from RN notes): No Skin Symptoms (Recalled from RN notes): No MS Symptoms (Recalled from RN notes): No Functional Status (Recalled from RN notes): n/a - History of Present Illness Provider Complaint: He states that he has had sinus congestion for the past 1 week. He has had a sore throat also. Onset (ago): hour(s) - Related Data Home Medications Medication Instructions Recorded Confirmed atorvastatin 20 mg tablet 20 mg PO DAILY 03/07/20 09/26/20 metoprolol succinate 100 mg 100 mg PO DAILY 03/07/20 08/14/21 tablet,extended release 24 hr Omeprazole 40 mg PO DAILY 07/24/20 08/14/21 Previous Rx's Medication Instructions Recorded duloxetine 60 mg capsule,delayed 60 mg PO DAILY #90 cap 06/03/21 release Azithromycin [Z-Sushant 250mg Tab*] 250 mg PO UD DOSE PK #6 tab 08/14/21 Benzonatate [Benzonatate 100mg 100 mg PO TIDP PRN #30 cap 08/14/21 cap] Promethazine/Dextromethorphan 5 ml PO Q6HP PRN #240 ml 08/14/21 [Promethazine-Dm Syrup] Allergies Allergy/AdvReac Type Severity Reaction Status Date / Time Penicillins [PENICILLINS] Allergy Unknown Verified 08/14/21 15:17 Sulfa (Sulfonamide Allergy Unknown Verified 08/14/21 15:17 Antibiotics) [SULFA (SULFONAMIDE ANTIBIOTICS)] - Worker's Comp Is this a Worker's Comp case?: No H History - Hepatitis A Screen Drug use history?: No High risk sexual behaviors?: No History of sexually transmitted infection?: No Currently em
[2021-08-14 16:13] LABS: UTC Influenza A Antigen Negative (Negative); UTC Influenza B Antigen Negative (Negative)
[2021-08-14 16:27] VITALS: BP 117/75; PULSE 93; RESP 18; TEMP 37.4; O2SAT 97
== END 2021-08-14 16:27 | disposition home or self-care (01) ==
LOC: ER 13:22 → UTC 13:22
PROVIDERS: Emergency Provider Nurse Practitioner Family; PCP Family Medicine
DX: J01.90 Acute sinusitis, unspecified (principal); B34.9 Viral infection, unspecified; I48.0 Paroxysmal atrial fibrillation; F41.8 Other specified anxiety disorders; K21.9 Gastro-esophageal reflux disease without esophagitis; I10 Essential (primary) hypertension
CPT/HCPCS: 87804

== ENCOUNTER 2023-03-12 09:55 | Emergency (ER) | payer MEDICAID, SELFPAY ==
[2023-03-12 10:05] VITALS: BP 118/80; PULSE 68; RESP 20; TEMP 36.7; O2SAT 97; BMI 31.4
--- NOTE | 2023-03-12 10:23 | EXP.UTC ---
Discharge Plan Disposition Patient Disposition: Home, Self-Care Condition: Good Prescriptions Prescriptions: New benzonatate 100 mg capsule 100 mg PO TID PRN (Reason: cough) Qty: 30 0RF guaifenesin [Mucinex] 600 mg tablet extended release 12hr 1,200 mg PO BID PRN (Reason: cough/congestion) Qty: 20 0RF Rx Instructions: Take during the day for cough/congestion azithromycin [Zithromax Z-Sushant] 250 mg tablet See Rx Instructions .ROUTE .COMPLEX 5 Days Qty: 6 0RF Rx Instructions: For 250 mg dose pack: take 500 mg today (day 1), then 250 mg for 4 days (days 2-5) No Action atorvastatin 20 mg tablet 20 mg PO DAILY Patient Comments: TAKE 1 TABLET BY MOUTH EVERY NIGHT metoprolol succinate 100 mg tablet extended release 24 hr 100 mg PO DAILY Patient Comments: TAKE 1 TABLET BY MOUTH DAILY duloxetine 60 mg capsule,delayed release(DR/EC) 60 mg PO DAILY Patient Comments: TAKE 1 CAPSULE BY MOUTH DAILY Referrals Follow up/Referrals: Provider,Referral, MD [Primary Care Provider] - See instructions Activity Restrictions/Add. Instructions Additional Instructions/Restrictions: Start antibiotic today. Be sure to complete entire prescription even if feeling better Monitor temp. Tylenol every 4 hours as needed and / or ibuprofen every 6 hours as needed ( As long as your primary care physician has told you that it ok to take both. For fever/aches/pains ER if no less than 101 despite Tylenol or Motrin Humidifier/vaporizer or hot steamy shower Mucinex during the day for your cough and cough suppressant only at night. Be sure to drink lots of water. *Tessalon Perles will not cause drowsiness but use at bedtime to help stop cough so that you may get some rest. Follow up IMMEDIATELY for new or worsening of symptoms OR no noticeable improvement over the next 48-72 hours. 911 immediately for any life threatening symptoms such as chest pain or difficulty breathing Clinical Impressions Clinical Impression: Bronchitis Sinusitis Qualifiers: Sinusitis location: unspecified location Chronicity: unspecified Qualified Code(s): J32.9 - Chronic sinusitis, unspecified Stand Alone Forms Stand Alone Forms: Work/School Release Instructions Patient Instructions: DI for Sinusitis, Acute Bronchitis Discharge ED Provider: Jennifer Resendiz [facility] General Stated complaint: runny nose,cough,fever,sore throat Mode of Arrival: Ambulatory Source of Information: Patient Limitations: No Limitations Time Seen by Provider: 03/12/23 10:15 Description of Symptoms (Recalled from Triage Doc. by RN): PATIENT C/O SORE THROAT, COUGH, CONGESTION, FEVER, AND HEADACHE SINCE WEDNESDAY HEENT Symptoms (Recalled from RN notes): Yes Resp Symptoms (Recalled from RN notes): Yes Skin Symptoms (Recalled from RN notes): No MS Symptoms (Recalled from RN notes): No Functional Status (Recalled from RN notes): WNL History of Present Illness Provider Complaint: Patient states that he has been sick since Wednesday States that he has been having sore throat, sinus congestion and pressure, cough, headache chills and fever States that today his cough was not getting any better and he was still feeling ill so he came in to get checked Related Data Home Medications Medication Instructions Recorded Confirmed atorvastatin 20 mg tablet 20 mg PO DAILY Cholesterol 03/12/23 03/12/23 duloxetine 60 mg capsule,delayed 60 mg PO DAILY Depression 03/12/23 03/12/23 release metoprolol succinate 100 mg 100 mg PO DAILY Hypertension 03/12/23 03/12/23 tablet,extended release 24 hr Previous Rx's Medication Instructions Recorded azithromycin 250 mg tablet See Rx Instructions PO .COMPLEX 5 03/12/23 (Zithromax Z-Sushant) days #6 tabs benzonatate 100 mg capsule 100 mg PO TID PRN cough #30 caps 03/12/23 guaifenesin 600 mg tablet, 1,200 mg PO BID PRN 03/12/23 extended release 12 hr (Mucinex) cough/congest
[2023-03-12 10:30] LABS: UTC Strep Screen (Rapid) Negative (Negative)
[2023-03-12 10:31] VITALS: BP 118/80; PULSE 68; RESP 20; TEMP 36.7; O2SAT 97
[2023-03-12 10:31] LABS: UTC Influenza A Antigen Negative (Negative); UTC Influenza B Antigen Negative (Negative)
== END 2023-03-12 10:40 | disposition home or self-care (01) ==
PROVIDERS: Emergency Provider Nurse Practitioner
DX: J20.9 Acute bronchitis, unspecified (principal); E78.5 Hyperlipidemia, unspecified; Q24.9 Congenital malformation of heart, unspecified; Z86.79 Personal history of other diseases of the circulatory system; Z95.810 Presence of automatic (implantable) cardiac defibrillator
CPT/HCPCS: 87804; 87880; 99212; 99214; G0463

== ENCOUNTER 2023-08-04 11:43 | Outpatient (CLI) | payer MEDICAID, SELFPAY ==
[2023-08-04 11:38] LABS: Coronavirus 19, PCR Not Detected (NotDetected); Influenza A, PCR Not Detected (NotDetected); Influenza B, PCR Not Detected (NotDetected)
[2023-08-04 12:05] LABS: Basophils # 0.1 K/mm3 (0-0.2); Basophils % 1.2 % (0.1-2.0); Eosinophils # 0.4 K/mm3 (0.0-0.4); Eosinophils % 4.6 % (0.1-12.0); Hematocrit 51.8 % (42.0-52.0); Hemoglobin 16.7 g/dL (14.1-18.0); Lymphocytes # 3.5 K/mm3 (0.7-4.5); Lymphocytes % 41.6 % (10-50); Mean Corpuscular HGB Conc 32.3 g/dL (31.8-35.4); Mean Corpuscular Hemoglobin 30.8 pg (27.0-31.2); Mean Corpuscular Volume 95.4 fl (80-94); Mean Platelet Volume 8.7 fl (7.4-10.4); Monocytes # 0.5 K/mm3 (0.1-1.0); Monocytes % 5.4 % (1.7-9.3); Neutrophils % 47.2 % (37.0-80.0); Platelet Count 310 K/mm3 (142-424); Red Blood Count 5.43 M/mm3 (4.60-6.20); Red Cell Distribution Width 13.7 % (11.5-17.5); White Blood Count 8.5 K/mm3 (4.8-10.8)
[2023-08-04 12:26] LABS: Alanine Aminotransferase 36 U/L (12-78); Albumin Level 4.2 g/dl (3.5-5.0); Albumin/Globulin Ratio 1.6 (1.1-1.8); Alkaline Phosphatase 119 U/L (38-126); Anion Gap 14.4 mEq/L (5-15); Aspartate Amino Transferase 28 U/L (17-59); Bilirubin,Total 0.7 mg/dl (0.2-1.3); Blood Urea Nitrogen 10 mg/dl (9-20); Calcium 9.1 mg/dl (8.4-10.2); Carbon Dioxide 21 mmol/L (22.0-30.0); Chloride 108 mmol/L (98-107); Chol/HDL Ratio 4.9 (1-3.5); Cholesterol 157 mg/dl (140-200); Estimated Glomerular Filt Rate 83 ml/min (>60); GFR (African American) 101 ML/MIN (>60); Globulin 2.6 g/dL (1.3-3.2); Glucose 132 mg/dl (74-100); HDL Cholesterol 32 mg/dl (40-60); Potassium 3.4 mmoL/L (3.5-5.1); Sodium 140 mmol/L (136-145); Total Protein,Serum 6.8 g/dl (6.3-8.2); Triglycerides 162 mg/dl (30-150); VLDL Cholesterol 32 mg/dL (0-40)
[2023-08-04 12:38] LABS: Direct LDL Cholesterol 80.17 mg/dL (100-129)
[2023-08-04 12:42] LABS: 25-OH Vitamin D, Total 31.5 ng/mL (30-100)
[2023-08-04 12:57] LABS: Thyroid Stimulating Hormone 0.94 uIU/mL (0.465-4.68)
[2023-08-04 14:57] LABS: Hemoglobin A1C 5.7 % (4.0-6.0)
== END 2023-08-04 23:59 ==
LOC: LAB.DROPOF 11:43
PROVIDERS: PCP Family Medicine; Visit Provider Family Medicine
DX: R11.0 Nausea (principal); R05.9 Cough, unspecified; R09.81 Nasal congestion; J02.9 Acute pharyngitis, unspecified; E66.9 Obesity, unspecified; Z68.31 Body mass index [BMI] 31.0-31.9, adult; Z79.899 Other long term (current) drug therapy
CPT/HCPCS: 80053; 80061; 82306; 83036; 84443; 85025; 87636

== ENCOUNTER 2023-10-27 12:20 | Outpatient (CLI) | payer MEDICAID, SELFPAY ==
--- NOTE | 2023-10-27 12:25 | CT_ITS ---
FINAL REPORT CLINICAL HISTORY: chronic migraines FINDINGS: Thin-section axial CT with IV contrast supplemented with multi planar reconstruction under CT angiogram protocol was performed of the head and neck. This study was performed technique to keep radiation doses as low as reasonably achievable, (ALARA). NASCET criteria was utilized during interpretation. CTA head: No aneurysm is seen. Major intracranial vessels are patent without significant stenosis. IMPRESSION: No evidence of significant stenosis, aneurysm or major branch occlusion. CTA neck: Aortic arch: Arch shows no significant narrowing. Great vessel origins are widely patent. Right carotid: No significant stenosis is seen at the cervical common or internal carotid artery. Left carotid: No significant stenosis is seen at the cervical common or internal carotid artery. Vertebrals: The vertebral arteries are codominant. No significant stenosis is present. IMPRESSION: No evidence of significant stenosis or major branch occlusion. Reviewed, Interpreted and Dictated by Damon Sullivan III, MD Transcribed by Laury Linares Authenticated and [facility]
[2023-10-27] MEDS: 0.9 % SODIUM CHLORIDE 50 ML VIAL IV (13:19)
[2023-10-27] MEDS: IOPAMIDOL-370 (76%);100ML BOTTLE 100 ML IV (13:19)
[2023-10-27] MEDS: SODIUM CHLORIDE 0.9% 10ML SYR (RAD ONLY) 10 ML IV (13:19)
== END 2023-10-27 23:59 | disposition home or self-care (01) ==
LOC: RAD 12:21
PROVIDERS: PCP Family Medicine; Visit Provider Family Medicine
DX: G44.209 Tension-type headache, unspecified, not intractable (principal); G89.29 Other chronic pain; L56.8 Other specified acute skin changes due to ultraviolet radiation; R11.0 Nausea
CPT/HCPCS: 70496; Q9967

== ENCOUNTER 2023-12-02 19:14 | Emergency (ER) | payer MEDICAID, SELFPAY ==
[2023-12-02 19:20] VITALS: BP 111/76; PULSE 80; RESP 18; TEMP 36.9; O2SAT 96; BMI 30.7
--- NOTE | 2023-12-02 19:29 | EXP.UTC ---
Discharge Plan Disposition Patient Disposition: Home, Self-Care Condition: Good Prescriptions Prescriptions: New clindamycin HCl 300 mg capsule 300 mg PO Q8H Qty: 30 0RF ibuprofen [IBU] 800 mg tablet 800 mg PO Q8HP PRN (Reason: Moderate Pain) Qty: 30 0RF No Action topiramate [Topamax] 50 mg tablet 50 mg PO DAILY Qty: 30 2RF ondansetron HCl 4 mg tablet 4 mg PO DAILY PRN (Reason: nausea and vomiting) Qty: 30 0RF fluticasone propionate [Flonase Allergy Relief] 50 mcg/actuation spray,suspension 1 spray intranasal DAILY PRN (Reason: allergy symptoms) Qty: 16 0RF Rx Instructions: administer into each nostril sumatriptan succinate 50 mg tablet See Rx Instructions PO .COMPLEX Qty: 30 4RF Rx Instructions: take 1 tab at onset of headache; if no relief may repeat 1 tab after at least 2 hrs; max = 4 tabs/24 hr PO atorvastatin 20 mg tablet 20 mg PO DAILY Patient Comments: TAKE 1 TABLET BY MOUTH EVERY NIGHT metoprolol succinate 100 mg tablet extended release 24 hr 100 mg PO DAILY Patient Comments: TAKE 1 TABLET BY MOUTH DAILY duloxetine 60 mg capsule,delayed release(DR/EC) 60 mg PO DAILY Patient Comments: TAKE 1 CAPSULE BY MOUTH DAILY Referrals Follow up/Referrals: Danielle Luceor APRN [Primary Care Provider] - See instructions Activity Restrictions/Add. Instructions Additional Instructions/Restrictions: Drink plenty of fluids. Take ibuprofen or tylenol for pain. I sent in a prescription for ibuprofen 800 mg tablets. Take the medications as directed. Eat yogurt at least a couple times per day while you are on the antibiotics. This will try to protect your gi tract from the side effects of the antibiotics. You have to follow up with a dentist. Please call and get an appointment to be seen by one. Follow up with your regular doctor. GO TO THE ER FOR ANY WORSENING SYMPTOMS Clinical Impressions Clinical Impression: Dental abscess, Pain, dental, Jaw pain Instructions Patient Instructions: DI for Tooth Abscess Discharge ED Provider: Jose Flood [facility] General Stated complaint: dental pain Time Seen by Provider: 12/02/23 19:29 History of Present Illness Provider Complaint: He states that for the past 2 weeks he has had worsening dental pain and swelling of his left lower gums around several decayed teeth. Related Data Home Medications Medication Instructions Recorded Confirmed atorvastatin 20 mg tablet 20 mg PO DAILY Cholesterol 03/12/23 11/29/23 duloxetine 60 mg capsule,delayed 60 mg PO DAILY Depression 03/12/23 11/29/23 release metoprolol succinate 100 mg 100 mg PO DAILY Hypertension 03/12/23 11/29/23 tablet,extended release 24 hr Previous Rx's Medication Instructions Recorded fluticasone propionate 50 1 spray intranasal DAILY PRN 08/04/23 mcg/actuation nasal allergy symptoms #16 grams spray,suspension (Flonase Allergy Relief) ondansetron HCl 4 mg tablet 4 mg PO DAILY PRN nausea and 08/04/23 vomiting #30 tabs sumatriptan succinate 50 mg tablet See Rx Instructions PO .COMPLEX 10/25/23 migraine #30 tabs topiramate 50 mg tablet (Topamax) 50 mg PO DAILY #30 tabs 11/29/23 clindamycin HCl 300 mg capsule 300 mg PO Q8H #30 caps 12/02/23 ibuprofen 800 mg tablet (IBU) 800 mg PO Q8HP PRN Moderate Pain 12/02/23 #30 tabs Allergies Allergy/AdvReac Type Severity Reaction Status Date / Time Penicillins [PENICILLINS] Allergy Unknown Verified 11/29/23 09:51 Sulfa (Sulfonamide Allergy Unknown Verified 11/29/23 09:51 Antibiotics) [SULFA (SULFONAMIDE ANTIBIOTICS)] [facility] Disclaimer: The information contained in this section may have been updated after the patient was seen, as this information can be updated by other users. Medical History Viral syndrome Cerumen impaction Calculus of kidney Ureteral calculi Patient underwent left ureteroscopy stone extraction and left stent placement on 315. He was admitted overnight for observation and on postop day 1 was feeling well and was ready for discharge. 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 caffeine: Yes ROS Obtained: Yes All systems reviewed & no additional complaints except as documented Constitutional Constitutional: Denies chills and Denies fever(s) Eyes Eyes: Denies eye discharge ENT Ears, Nose, Mouth, and Throat: Denies dizziness, Denies otalgia and Denies sore throat Cardiovascular Cardiovascular: Denies chest pain Respiratory Respiratory: Denies shortness of breath, Denies chest congestion, Denies cough, Denies stridor and Denies wheezing Gastrointestinal Gastrointestingal: Denies nausea or vomiting Musculoskeletal Musculoskeletal: Reports system reviewed and no additional complaints, except as documented and Denies arthralgias Integumentary/Breasts Skin/Breast: Denies rash Neurologic Neurologic: Denies dizziness and Denies paresthesias Allergic/Immunologic Allergic/Immunologic: Denies wheezing Physical Exam General General appearance: alert and in no apparent distress Head Head exam: atraumatic, normocephalic and normal inspection Eye Eye exam: Present normal appearance, PERRL and EOMI ENT ENT exam: Present mucous membranes moist, TM's normal bilaterally and normal external ear exam Expanded ENT Exam Nose exam: Absent sinus tenderness Nasal speculum exam: Bilateral: normal Mouth exam: Present normal external inspection; Absent drooling Teeth exam: Present dental caries, fractured tooth # and dental tenderness # Throat exam: Present normal inspection Neck Neck exam: Present normal inspection, full ROM and trachea midline; Absent meningismus or lymphadenopathy Chest Chest inspection: Present normal inspection and symmetric chest wall rise; Absent tenderness Respiratory Respiratory exam: Present normal lung sounds bilaterally; Absent respiratory distress Cardiovascular Cardiovascular exam: Present regular rate and normal rhythm; Absent JVD Abdominal Exam Abdominal exam: Present soft and normal bowel sounds; Absent distention, tenderness or guarding Extremities Exam Extremities exam: Present normal inspection, full ROM and normal capillary refill; Absent calf tenderness Back Exam Back exam: Present normal inspection; Absent tenderness Neurological Exam Neurological exam: Present alert and oriented X3 Psychiatric Psychiatric exam: Present normal affect and normal mood Skin Skin exam: Present warm, dry, intact and normal color Lymphatic Lymphatic Findings: no adenopathy Medical Decision Making Medical Records Medical records reviewed: No I reviewed the patient's medical records. Nael Vega Pt receiving controlled substance: No
[2023-12-02] MEDS: LIDOCAINE 2% VISCOUS SOL 15ML UDC 15 ML PO (19:48)
[2023-12-02] MEDS: TETRACAINE/BENZOCAINE/BUTAMBEN 56 GM SPRAY TP (19:49)
[2023-12-02] MEDS: CLINDAMYCIN 150MG CAPSULE 300 MG PO (19:54)
[2023-12-02 19:56] VITALS: BP 111/76; PULSE 80; RESP 18; TEMP 36.9; O2SAT 96
== END 2023-12-02 19:59 | disposition home or self-care (01) ==
PROVIDERS: Emergency Provider Nurse Practitioner Family; PCP Family Medicine
DX: K04.7 Periapical abscess without sinus (principal); R68.84 Jaw pain
CPT/HCPCS: 99212; 99214; G0463

== ENCOUNTER 2024-01-06 10:29 | Outpatient (CLI) | payer MEDICAID, SELFPAY ==
[2024-01-06 17:50] LABS: Influenza A, PCR Not Detected (NotDetected); Influenza B, PCR Not Detected (NotDetected)
[2024-01-06 19:27] LABS: Coronavirus 19, PCR Detected (NotDetected)
== END 2024-01-06 23:59 | disposition home or self-care (01) ==
LOC: LAB.DROPOF 01-07 10:30
PROVIDERS: PCP Family Medicine; Visit Provider Family Medicine
DX: R50.9 Fever, unspecified (principal); U07.1 COVID-19
CPT/HCPCS: 87636

== ENCOUNTER 2024-01-08 11:55 | Emergency (ER) | payer MEDICAID, SELFPAY ==
--- NOTE | 2024-01-08 12:00 | EXP.UTC ---
Discharge Plan Disposition Patient Disposition: Home, Self-Care Condition: Good Prescriptions Prescriptions: New prednisone 20 mg tablet 20 mg PO BID Qty: 10 0RF ondansetron 8 mg tablet,disintegrating 8 mg PO TID PRN (Reason: Nausea) Qty: 30 0RF No Action topiramate [Topamax] 50 mg tablet 50 mg PO DAILY Qty: 30 2RF atorvastatin 20 mg tablet 20 mg PO DAILY Patient Comments: TAKE 1 TABLET BY MOUTH EVERY NIGHT metoprolol succinate 100 mg tablet extended release 24 hr 100 mg PO DAILY Patient Comments: TAKE 1 TABLET BY MOUTH DAILY duloxetine 60 mg capsule,delayed release(DR/EC) 60 mg PO DAILY Patient Comments: TAKE 1 CAPSULE BY MOUTH DAILY Referrals Follow up/Referrals: Danielle Lucero APRN [Primary Care Provider] - See instructions Activity Restrictions/Add. Instructions Additional Instructions/Restrictions: Push fluids, rest Clinical Impressions Clinical Impression: Migraine headache, Upper respiratory infection Instructions Patient Instructions: DI for Viral Syndrome Print Language Print Language: Cape Verdean Discharge ED Provider: Tammy Gaxiola [facility] HPI General Stated complaint: cough, fever, migraine, sneezing, vomiting Time Seen by Provider: 01/08/24 12:33 History of Present Illness Provider Complaint: Cough, fever, headache, body aches, chills, vomiting X 3 days. Onset (ago): day(s) (3) Location: head Relieving factors: none Exacerbating factors: none Associated symptoms: fever/chills, headaches and nausea/vomiting Treatments prior to arrival: none Related Data Home Medications ?Medication ?Instructions ?Recorded ?Confirmed atorvastatin 20 mg tablet 20 mg PO DAILY Cholesterol 03/12/23 01/08/24 duloxetine 60 mg capsule,delayed 60 mg PO DAILY Depression 03/12/23 01/08/24 release metoprolol succinate 100 mg 100 mg PO DAILY Hypertension 03/12/23 01/08/24 tablet,extended release 24 hr Previous Rx's ?Medication ?Instructions ?Recorded topiramate 50 mg tablet (Topamax) 50 mg PO DAILY #30 tabs 11/29/23 ondansetron 8 mg disintegrating 8 mg PO TID PRN Nausea #30 tabs 01/08/24 tablet prednisone 20 mg tablet 20 mg PO BID #10 tabs 01/08/24 Allergies Allergy/AdvReac Type Severity Reaction Status Date / Time Penicillins [PENICILLINS] Allergy Unknown Verified 01/06/24 13:53 Sulfa (Sulfonamide Allergy Unknown Verified 01/06/24 13:53 Antibiotics) [SULFA (SULFONAMIDE ANTIBIOTICS)] [facility] Disclaimer: The information contained in this section may have been updated after the patient was seen, as this information can be updated by other users. 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
[2024-01-08 12:15] VITALS: BP 109/79; PULSE 86; RESP 19; TEMP 37.2; O2SAT 96; BMI 29.7
[2024-01-08 12:27] LABS: Influenza A, PCR Not Detected (NotDetected); Influenza B, PCR Not Detected (NotDetected)
[2024-01-08 12:28] LABS: UTC Strep Screen (Rapid) Negative (Negative)
[2024-01-08 12:41] VITALS: BP 109/79; PULSE 86; RESP 19; TEMP 37.2; O2SAT 96
[2024-01-08 14:46] LABS: Coronavirus 19, PCR Detected (NotDetected)
== END 2024-01-08 12:47 | disposition home or self-care (01) ==
PROVIDERS: Emergency Provider Physician Assistant; PCP Family Medicine
DX: U07.1 COVID-19 (principal); G43.909 Migraine, unspecified, not intractable, without status migrainosus; R50.9 Fever, unspecified; R11.2 Nausea with vomiting, unspecified
CPT/HCPCS: 87636; 87880; 96372; 99212; 99214; G0463; J1885; J2550

== ENCOUNTER 2024-01-23 21:39 | Emergency (ER) | payer MEDICAID, SELFPAY ==
[2024-01-23 21:40] VITALS: BP 132/85; PULSE 100; RESP 20; TEMP 36.5; O2SAT 97; BMI 31.0
--- NOTE | 2024-01-23 21:46 | HMH.EDGENADL ---
Discharge Plan Disposition Patient Disposition: Home, Self-Care Condition: Good Prescriptions Prescriptions: New albuterol sulfate 90 mcg/actuation HFA aerosol inhaler 1 inh inhalation Q4H PRN (Reason: shortness of breath or wheezing) Qty: 8.5 0RF doxycycline hyclate 100 mg capsule 100 mg PO BID 10 Days Qty: 20 0RF No Action topiramate [Topamax] 50 mg tablet 50 mg PO DAILY Qty: 30 2RF benzonatate 200 mg capsule 200 mg PO BID PRN prednisone 20 mg tablet 20 mg PO DAILY Qty: 7 0RF cephalexin 500 mg capsule 500 mg PO Q8H 10 Days Qty: 30 0RF atorvastatin 20 mg tablet 20 mg PO DAILY Patient Comments: TAKE 1 TABLET BY MOUTH EVERY NIGHT metoprolol succinate 100 mg tablet extended release 24 hr 100 mg PO DAILY Patient Comments: TAKE 1 TABLET BY MOUTH DAILY duloxetine 60 mg capsule,delayed release(DR/EC) 60 mg PO DAILY Patient Comments: TAKE 1 CAPSULE BY MOUTH DAILY ondansetron 8 mg tablet,disintegrating 8 mg PO TID PRN (Reason: Nausea) Qty: 30 0RF Referrals Follow up/Referrals: Jason Adame MD [Physician] - See instructions Alex Rendon MD [Primary Care Provider] - See instructions Clinical Impressions Clinical Impression: Post-viral cough syndrome, Laryngitis Instructions Patient Instructions: DI for Laryngitis Print Language Print Language: Occitan Discharge ED Provider: Lm Foley General Adult HPI <GASTON Rossi - Last Filed: 01/23/24 23:09> General Chief complaint: Upper Respiratory Infection Stated complaint: sore throat , cough, Had Covid three weeks ago Time Seen by Provider: 01/23/24 21:46 History of Present Illness HPI narrative: Patient presents for evaluation of cough malaise post COVID 3 weeks ago. Patient saw his PCP who has started him on steroids Tessalon Perles and Keflex however no x-ray or blood work was done. Patient has had no improvement without intervention and presents for evaluation today. He reports that he also is having chest pain but primarily when coughing. He reports no intolerance to oral intake no difficulty swallowing no shortness of breath chills hemoptysis hematochezia melena nausea vomiting diarrhea. Related Data Home Medications ?Medication ?Instructions ?Recorded ?Confirmed atorvastatin 20 mg tablet 20 mg PO DAILY Cholesterol 03/12/23 01/13/24 duloxetine 60 mg capsule,delayed 60 mg PO DAILY Depression 03/12/23 01/13/24 release metoprolol succinate 100 mg 100 mg PO DAILY Hypertension 03/12/23 01/13/24 tablet,extended release 24 hr benzonatate 200 mg capsule 200 mg PO BID PRN 01/13/24 01/13/24 Previous Rx's ?Medication ?Instructions ?Recorded topiramate 50 mg tablet (Topamax) 50 mg PO DAILY #30 tabs 11/29/23 ondansetron 8 mg disintegrating 8 mg PO TID PRN Nausea #30 tabs 01/08/24 tablet cephalexin 500 mg capsule 500 mg PO Q8H 10 days #30 caps 01/13/24 prednisone 20 mg tablet 20 mg PO DAILY #7 tabs 01/13/24 albuterol sulfate 90 mcg/actuation 1 inh inhalation Q4H PRN shortness 01/23/24 aerosol inhaler of breath or wheezing #8.5 grams doxycycline hyclate 100 mg capsule 100 mg PO BID 10 days #20 caps 01/23/24 Allergies Allergy/AdvReac Type Severity Reaction Status Date / Time Penicillins [PENICILLINS] Allergy Unknown Verified 01/13/24 15:00 Sulfa (Sulfonamide Allergy Unknown Verified 01/13/24 15:00 Antibiotics) [SULFA (SULFONAMIDE ANTIBIOTICS)] [facility] <GASTON Rossi - Last Filed: 01/23/24 23:09> [facility] Disclaimer: The information contained in this section may have been updated after the patient was seen, as this information can be updated by other users. Medical History Viral syndrome Cerumen impaction Calculus of kidney Ureteral calculi Patient underwent left ureteroscopy stone extraction and left stent placement on 315. He was admitted overnight for observation and on postop day 1 was feeling well and was ready for discharge. 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 caffeine: Yes <GASTON Rossi - Last Filed: 01/23/24 23:09> ROS Obtained: Yes Systems reviewed as appropriate & no additional complaints except as documented Physical Exam <GASTON Rossi - Last Filed: 01/23/24 23:09> General General appearance: alert and in no apparent distress Respiratory Respiratory exam: Present normal lung sounds bilaterally; Absent respiratory distress, wheezes or accessory muscle use Cardiovascular Cardiovascular exam: Present regular rate Neurological Exam Neurological exam: Present alert and oriented X3 Medical Decision Making <GASTON Rossi - Last Filed: 01/23/24 23:09> Medical Records Medical records reviewed: Yes I reviewed the patient's medical records. Nael Inquiry Pt receiving controlled substance: No Vital Signs: 01/23/24 21:40 01/23/24 22:44 01/23/24 23:17 Temperature 97.7 F 98.0 F Temperature Source Oral Pulse Rate 98 H 92 H Pulse Rate [Right Radial] 100 H Respiratory Rate 20 20 Blood Pressure 126/76 Blood Pressure [Right Arm] 132/85 Blood Pressure Mean [Right Arm] 100 02 Sat by Pulse Oximetry 97 Oxygen Delivery Method Room Air Room Air Lab Data Lab results reviewed: Yes I reviewed the patient's lab results. Lab Results 01/23/24 22:25: WBC 12.5 H, RBC 5.26, Hgb 15.9, Hct 51.2, MCV 97.2 H, MCH 30.2, MCHC 31.1 L, RDW 14.1, Plt Count 331, MPV 8.5, Neut % (Auto) 68.5, Lymph % (Auto) 22.2, [place] % (Auto) 7.1, Eos % (Auto) 1.4, Baso % (Auto) 0.9, Neut # (Auto) 8.6 H, Lymph # (Auto) 2.8, [place] # (Auto) 0.9, Eos # (Auto) 0.2, Baso # (Auto) 0.1, D-Dimer 0.26, Sodium 140, Potassium 3.7, Chloride 114 H, Carbon Dioxide 22, Anion Gap 7.7, BUN 14, Creatinine 1.10, Estimated Creat Clear 121, Estimated GFR 75, Est GFR ( Amer) 90, Glucose 109 H, Calcium 9.1, Magnesium 2.1, Total Bilirubin 0.7, AST 27, ALT 45, Alkaline Phosphatase 101, NT-Pro-B Natriuret Pep 113, Total Protein 6.6, Albumin 3.4 L, Globulin 3.2, Albumin/Globulin Ratio 1.1 01/23/24 22:25 01/23/24 22:25 Orders (Tests/Meds): ED MEDICATIONS Discontinued Medications Generic Name Dose Route Start Last Admin Trade Name Freq PRN Reason Stop Dose Admin Acetaminophen 1,000 mg 01/23/24 21:52 01/23/24 22:26 Acetaminophen 1,000mg/100ml Vial IV 01/23/24 21:53 1,000 mg ONCE ONE Administration Albuterol/Ipratropium 3 ml 01/23/24 21:52 01/23/24 22:43 Ipratropium/Albuterol 3 Ml Neb IH 01/23/24 21:53 3 ml ONCE ONE Administration Dexamethasone Sodium Phosphate 10 mg 01/23/24 21:52 01/23/24 22:26 Dexamethasone 4mg/Ml 5ml Mdv IV 01/23/24 21:53 10 mg ONCE ONE Administration Doxycycline Hyclate 100 mg 01/23/24 23:10 01/23/24 23:17 Doxycycline Hycl 100 Mg Tablet PO 01/23/24 23:11 100 mg ONCE ONE Administration Lactated Ringer's 1,000 mls @ 999 mls/hr 01/23/24 21:52 01/23/24 22:26 Lactated Ringer's 1000 Ml Bag IV 01/23/24 22:52 999 mls/hr .Q1H1M ONE Administration Ketorolac Tromethamine 15 mg 01/23/24 21:52 01/23/24 22:26 Ketorolac 30mg/Ml Vial IV 01/23/24 21:53 15 mg ONCE ONE Administration ORDERS Category Date Time Status Chest XR 2 view (NOT portable) [XR chest 2V] Stat Exams 01/23/24 21:52 Completed BNP [NT Pro Brain Natriuretic Pep.] Stat Lab 01/23/24 22:25 Completed CBC w/Auto Diff [Complete Blood Count Auto Diff] Stat Lab 01/23/24 22:25 Completed CMP [Comprehensive Metabolic Panel] Stat Lab 01/23/24 22:25 Completed D-Dimer Stat Lab 01/23/24 22:25 Completed Full Resp Panel w/COVID ([facility]) Routine Lab 01/23/24 22:06 Received Magnesium Stat Lab 01/23/24 22:25 Completed Medical Decision Narrative: In summary patient is a 38-year-old male who presents to the emergency department for evaluation of persistent post-COVID cough. Patient is tachycardic normotensive upon arrival, afebrile. Patient does have a history of congenital heart disease and has an AICD. Physical exam is remarkable for clear breath sounds heard to the bases without adventitious sounds, no reproducible chest pain on palpation, tachycardia noted on the bedside monitor at the time of my exam, tenderness to palpation anterior neck but no evidence of swelling or lymphadenitis. Differential diagnosis includes postviral cough versus pulmonary edema versus PE versus secondary infection etc. Initial workup will be conducted with plain film chest x-ray hematologic labs full respiratory panel. Initial interventions include Tylenol Toradol Decadron DuoNeb. Initial workup reviewed by me shows that his hematologic labs are nonactionable his D-dimer is negative. Upon repeat evaluation patient reports moderate improvement after initial interventions. Given this patient is appropriate for discharge and will change his antibiotic to doxycycline with first dose given here. Will prescribe him a metered-dose inhaler. Will refer him to ENT for laryngeal evaluation <Lm Foley MD - Last Filed: 01/25/24 16:39> Vital Signs: 01/23/24 21:40 01/23/24 22:44 01/23/24 23:17 Temperature 97.7 F 98.0 F Temperature Source Oral Pulse Rate 98 H 92 H Pulse Rate [Right Radial] 100 H Respiratory Rate 20 20 Blood Pressure 126/76 Blood Pressure [Right Arm] 132/85 Blood Pressure Mean [Right Arm] 100 02 Sat by Pulse Oximetry 97 Oxygen Delivery Method Room Air Room Air Lab Data Lab Results 01/23/24 22:25: WBC 12.5 H, RBC 5.26, Hgb 15.9, Hct 51.2, MCV 97.2 H, MCH 30.2, MCHC 31.1 L, RDW 14.1, Plt Count 331, MPV 8.5, Neut % (Auto) 68.5, Lymph % (Auto) 22.2, [place] % (Auto) 7.1, Eos % (Auto) 1.4, Baso % (Auto) 0.9, Neut # (Auto) 8.6 H, Lymph # (Auto) 2.8, [place] # (Auto) 0.9, Eos # (Auto) 0.2, Baso # (Auto) 0.1, D-Dimer 0.26, Sodium 140, Potassium 3.7, Chloride 114 H, Carbon Dioxide 22, Anion Gap 7.7, BUN 14, Creatinine 1.10, Estimated Creat Clear 121, Estimated GFR 75, Est GFR ( Amer) 90, Glucose 109 H, Calcium 9.1, Magnesium 2.1, Total Bilirubin 0.7, AST 27, ALT 45, Alkaline Phosphatase 101, NT-Pro-B Natriuret Pep 113, Total Protein 6.6, Albumin 3.4 L, Globulin 3.2, Albumin/Globulin Ratio 1.1 Orders (Tests/Meds): ED MEDICATIONS Discontinued Medications Generic Name Dose Route Start Last Admin Trade Name Ty PRN Reason Stop Dose Admin Acetaminophen 1,000 mg 01/23/24 21:52 01/23/24 22:26 Acetaminophen 1,000mg/100ml Vial IV 01/23/24 21:53 1,000 mg ONCE ONE Administration Albuterol/Ipratropium 3 ml 01/23/24 21:52 01/23/24 22:43 Ipratropium/Albuterol 3 Ml Neb IH 01/23/24 21:53 3 ml ONCE ONE Administration Dexamethasone Sodium Phosphate 10 mg 01/23/24 21:52 01/23/24 22:26 Dexamethasone 4mg/Ml 5ml Mdv IV 01/23/24 21:53 10 mg ONCE ONE Administration Doxycycline Hyclate 100 mg 01/23/24 23:10 01/23/24 23:17 Doxycycline Hycl 100 Mg Tablet PO 01/23/24 23:11 100 mg ONCE ONE Administration Lactated Ringer's 1,000 mls @ 999 mls/hr 01/23/24 21:52 01/23/24 22:26 Lactated Ringer's 1000 Ml Bag IV 01/23/24 22:52 999 mls/hr .Q1H1M ONE Administration Ketorolac Tromethamine 15 mg 01/23/24 21:52 01/23/24 22:26 Ketorolac 30mg/Ml Vial IV 01/23/24 21:53 15 mg ONCE ONE Administration ORDERS Category Date Time Status Chest XR 2 view (NOT portable) [XR chest 2V] Stat Exams 01/23/24 21:52 Completed BNP [NT Pro Brain Natriuretic Pep.] Stat Lab 01/23/24 22:25 Completed CBC w/Auto Diff [Complete Blood Count Auto Diff] Stat Lab 01/23/24 22:25 Completed CMP [Comprehensive Metabolic Panel] Stat Lab 01/23/24 22:25 Completed D-Dimer Stat Lab 01/23/24 22:25 Completed Full Resp Panel w/COVID ([facility]) Routine Lab 01/23/24 22:06 Received Magnesium Stat Lab 01/23/24 22:25 Completed Medical Decision Narrative: In summary patient is a 38-year-old male who presents to the emergency department for evaluation of persistent post-COVID cough. Patient is tachycardic normotensive upon arrival, afebrile. Patient does have a history of congenital heart disease and has an AICD. Physical exam is remarkable for clear breath sounds heard to the bases without adventitious sounds, no reproducible chest pain on palpation, tachycardia noted on the bedside monitor at the time of my exam, tenderness to palpation anterior neck but no evidence of swelling or lymphadenitis. Differential diagnosis includes postviral cough versus pulmonary edema versus PE versus secondary infection etc. Initial workup will be conducted with plain film chest x-ray hematologic labs full respiratory panel. Initial interventions include Tylenol Toradol Decadron DuoNeb. Initial workup reviewed by me shows that his hematologic labs are nonactionable his D-dimer is negative. Upon repeat evaluation patient reports moderate improvement after initial interventions. Given this patient is appropriate for discharge and will change his antibiotic to doxycycline with first dose given here. Will prescribe him a metered-dose inhaler. Will refer him to ENT for laryngeal evaluation I was consulted by the CYNTHIA, and we discussed the complexity of the problems being addressed. I approved the treatment and management plan for this patient's care in the Emergency Department, thus performing a substantive portion of the medical decision making. Lm Foley MD Critical Care <GASTON Rossi - Last Filed: 01/23/24 23:09> Critical Care Time Critical Care Time: No
--- NOTE | 2024-01-23 21:52 | XR_ITS ---
PROCEDURE INFORMATION: Exam: XR Chest Exam date and time: 01/23/2024 9:58 PM Age: 38 years old Clinical indication: Cough; Additional info: Persistent cough post-covid 3 weeks ago TECHNIQUE: Imaging protocol: Radiologic exam of the chest. Views: 2 views. COMPARISON: CR XR KUB 08/01/2020 9:37 AM FINDINGS: Lungs: Normal. Pleural spaces: Normal. No pleural effusion. No pneumothorax. Heart/Mediastinum: No cardiomegaly. Left chest wall single lead pacemaker in place with lead tip extending to the level of the right ventricle. Bones/joints: Unremarkable. IMPRESSION: No acute findings.
--- NOTE | 2024-01-23 21:52 | ECG_ITS ---
APPROVED REPORT Exam: Resting ECG HR:83 bpm ECG Measurements Heart Rate 83 AXES MI 119 P 48 QRSd 91 QRS 35 QT 376 T 50 QTc 416 Conclusion Sinus rhythm Electronically signed by : EDWARDO GORDILLO, 01/23/2024 23:11:19
[2024-01-23 22:13] LABS: Bordetella Pertussis Not Detected (NotDetected); Chlamydophila Pneumoniae, PCR Not Detected (NotDetected); Coronavirus 19, PCR Not Detected (NotDetected); Coronavirus 229E Not Detected (NotDetected); Coronavirus NL63 Not Detected (NotDetected); Coronavirus OC43 Not Detected (NotDetected); Coronovirus HKU1,PCR Not Detected (NotDetected); Human Metapneumovirus Not Detected (NotDetected); Influenza A, PCR Not Detected (NotDetected); Influenza AH1, 2009 Not Detected (NotDetected); Influenza AH1, PCR Not Detected (NotDetected); Influenza AH3,PCR Not Detected (NotDetected); Influenza B, PCR Not Detected (NotDetected); Mycoplasma Pneumoniae, PCR Not Detected (NotDetected); Parainfluenza 1, PCR Not Detected (NotDetected); Parainfluenza 2, PCR Not Detected (NotDetected); Parainfluenza 3, PCR Not Detected (NotDetected); Parainfluenza 4, PCR Not Detected (NotDetected); Respiratory Syncytial Virus Not Detected (NotDetected); Rhinovirus/Enterovirus Not Detected (NotDetected)
[2024-01-23] MEDS: LACTATED RINGERS 1000ML 1,000 ML 999 ML IV (22:26)
[2024-01-23] MEDS: KETOROLAC 30MG/ML VIAL 15 MG IV (22:26)
[2024-01-23] MEDS: DEXAMETHASONE 4MG/ML 5ML MDV 10 MG IV (22:26)
[2024-01-23] MEDS: ACETAMINOPHEN 1,000MG/100ML VIAL 1000 MG IV (22:26)
[2024-01-23 22:30] LABS: Basophils # 0.1 K/mm3 (0-0.2); Basophils % 0.9 % (0.1-2.0); Eosinophils # 0.2 K/mm3 (0.0-0.4); Eosinophils % 1.4 % (0.1-12.0); Hematocrit 51.2 % (42.0-52.0); Hemoglobin 15.9 g/dL (14.1-18.0); Lymphocytes # 2.8 K/mm3 (0.7-4.5); Lymphocytes % 22.2 % (10-50); Mean Corpuscular HGB Conc 31.1 g/dL (31.8-35.4); Mean Corpuscular Hemoglobin 30.2 pg (27.0-31.2); Mean Corpuscular Volume 97.2 fl (80-94); Mean Platelet Volume 8.5 fl (7.4-10.4); Monocytes # 0.9 K/mm3 (0.1-1.0); Monocytes % 7.1 % (1.7-9.3); Neutrophils # 8.6 K/mm3 (1.8-7.8); Neutrophils % 68.5 % (37.0-80.0); Platelet Count 331 K/mm3 (142-424); Red Blood Count 5.26 M/mm3 (4.60-6.20); Red Cell Distribution Width 14.1 % (11.5-17.5); White Blood Count 12.5 K/mm3 (4.8-10.8)
[2024-01-23 22:41] LABS: Alanine Aminotransferase 45 U/L (12-78); Albumin Level 3.4 g/dl (3.5-5.0); Albumin/Globulin Ratio 1.1 (1.1-1.8); Alkaline Phosphatase 101 U/L (38-126); Anion Gap 7.7 mEq/L (5-15); Aspartate Amino Transferase 27 U/L (17-59); Bilirubin,Total 0.7 mg/dl (0.2-1.3); Blood Urea Nitrogen 14 mg/dl (9-20); Calcium 9.1 mg/dl (8.4-10.2); Carbon Dioxide 22 mmol/L (22.0-30.0); Chloride 114 mmol/L (98-107); Creatinine Clearance Estimated 121 mL/min (50-200); Estimated Glomerular Filt Rate 75 ml/min (>60); GFR (African American) 90 ML/MIN (>60); Globulin 3.2 g/dL (1.3-3.2); Glucose 109 mg/dl (74-100); Magnesium 2.1 mg/dl (1.6-2.3); Potassium 3.7 mmoL/L (3.5-5.1); Sodium 140 mmol/L (136-145); Total Protein,Serum 6.6 g/dl (6.3-8.2)
[2024-01-23] MEDS: IPRATROPIUM/ALBUTEROL 3 ML NEB IH (22:43)
[2024-01-23 22:44] VITALS: PULSE 98
[2024-01-23 22:46] LABS: D-Dimer 0.26 ug/mL (0.0-0.5)
[2024-01-23 22:52] LABS: NT Pro Brain Natriuretic Pep. 113 pg/mL (0-125)
[2024-01-23 23:17] VITALS: BP 126/76; PULSE 92; RESP 20; TEMP 36.7; O2SAT 96
[2024-01-23] MEDS: DOXYCYCLINE HYCL 100 MG TABLET PO (23:17)
[2024-01-26 12:34] LABS: Adenovirus,PCR Not Detected (NotDetected)
== END 2024-01-23 23:23 | disposition home or self-care (01) ==
PROVIDERS: Physician Assistant; Emergency Provider Emergency Medicine; PCP Family Medicine
DX: J04.0 Acute laryngitis (principal); R05.8 Other specified cough; Z86.16 Personal history of COVID-19
CPT/HCPCS: 71046; 80053; 83735; 83880; 85025; 85378; 87265; 87486; 87581; 87632; 87635; 93005; 96361; 96374; 96375; 99284; J0131; J1100; J1885; J7120; J7620

== ENCOUNTER 2024-11-18 22:17 | Emergency (ER) | payer MEDICAID, SELFPAY ==
--- OUTSIDE RECORDS SUMMARY | 2021-03-13 07:45 | XMS_ITS | Continuity of Care Document ---
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 Name Role Phone Deedee Mcdonald MD Unavailable Unavailabl e Allergies, Adverse Reactions, Alerts Substance Reaction Status Criticality No Known Allergies Active No Inform ation Medications Medication Instructions Dosage Effective Dates (start - stop) Status Comments valacyclovir 1 gram tablet take 1 tablet by oral route 3x daily - Active erythromycin 5 mg/gram (0.5 %) eye ointment apply to right lower lid margin 3-4x daily - Active Procedures Procedure Date Refraction Comprehensive EP (Complete) 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 [address] [place] [address], [id number], [place]. 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 [address] [place] [address], [id number], [place]. 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 [address] [place] [address] Road, [address], [place], [place], [id number], . tel:[phone] Family History Family Member Type Diagnosis Age At Onset No Information Payers Payer name Insurance type Covered green party ID Yumiko gibbs(s) Michi Hughes [id number] Social History Type Description Quantity Date Captured Comments Alcohol Use Details Unknown Caffeine Use Details Unknown Tobacco Use Status No Information Smoking Status No Information Sex Male Chief Complaint And Reason For Visit No Information Reason For Referral Reason For Referral No Information History Of Present Illness Encounter Date Complaint History Of Prese nt Illness follow up The 35 year old male here to follow up herpes in the right eye. Pt finished all drops and ointment as prescribed. Pt still sees a very little bump under his right eyebrow. Pt denies any vision changes, flashes, floaters or dry eyes. Medications: NoneGTTS: none sore and red RLL The 35 year old male presents for evaluation of sore and red RLL. Pt had a FBS and pain RLL last . Pt went to primary care doctor Wednesday was put on generic Maxitrol 3-5x daily OD. Pt uses OTC Stye Eye Relief RLL TID. Pt denies flashes, floaters or vision changes OU. no h/o fever blisters or genital sores.+h/o HPV.o/w healthy.No family historyMed: Vitamins Allergy No trauma, no injuries or surgeries OU Functional Status Date Functional Assessmen t No Information Instructions Date Instruction Additional Infor mation Impression/Plan Related to Vesic ular dermatitis of eyelid due to herpes simplex virus (HSV) Impression/Plan Related to Combi maye forms of age-related cataract, bilateral Impression/Plan Related to Vesic ular dermatitis of eyelid due to herpes simplex virus (HSV) Assessments Type Assessment Date No Information Patient Care Teams Name Effective Dates (start - stop) Status Members No Information
--- OUTSIDE RECORDS SUMMARY | 2023-08-26 04:58 | XMS_ITS | Continuity of Care Document ---
Author Organization [facility] Address [address] [place] [address] Phone Care Team Providers Care Metalsmith Name Role Phone Milena VAUGHAN, Antonio Unavailable Unavailable Allergies, Adverse Reactions, Alerts Substance Reaction Status Criticality No Known Allergies Active No Inform ation Medications Medication Instructions Dosage Effective Dates (start - stop) Status Comments hydrocodone 10 mg-acetaminophen 325 mg tablet TAKE 1 TO 2 TABLETS BY MOUTH EVERY 6 HOURS NEEDED FOR SEVERE PAIN - Active meloxicam 7.5 mg tablet TAKE 1 TABLET BY MOUTH DAILY - Active sulfamethoxazole 800 mg-trimethoprim 160 mg tablet TAKE 1 TABLET BY MOUTH EVERY DAY FOR 5 DAYS - Active gabapentin 300 mg capsule - Active escitalopram 20 mg tablet - Active lamotrigine 100 mg tablet - Active methylprednisolone 4 mg tablets in a dose pack - Active lamotrigine 25 mg tablet - A ctive naloxone 4 mg/actuation nasal spray SPRAY INTO ONE NOSTRIL IF EXCESS SEDATION. CALL 911. REPEAT EVERY 2-3 MIN IN ALTERNATE NOSTRIL UNTIL AWAKE OR EMS ARRIVES. - Active Seglentis 44 mg-56 mg tablet TAKE 2 TABLETS BY MOUTH EVERY 12 HOURS. MAX DAILY AMOUNT 4 TABLETS - Active methocarbamol 750 mg tablet TAKE 1-2 TABLETS AT NIGHT, NEEDED. - Active escitalopram 10 mg tablet TAKE 1 1/2 TAB LETS BY MOUTH DAILY - Active trazodone 50 mg tablet - Act dae levofloxacin 500 mg tablet - Active amoxicillin 500 mg capsule TAKE 1 CAPSUL E BY MOUTH 3 TIMES A DAY FOR 10 DAYS - Active fluticasone propionate 50 mcg/actuation nasal spray,suspension INHALE 2 SPRAYS INTO NOSTRIL DAILY FOR UPPER RESPIRATORY TRACT ALLERGY - Active promethazine 6.25 mg/5 mL oral syrup - Active lithium carbonate 150 mg capsule TAKE 1 TABLET BY MOUTH AT BEDTIME - Active diclofenac 1 % topical gel APPLY 2-3 IAN ES A DAY NEEDED - Active Problems Condition Type Effective Dates (start - stop) Clini linda Status Comments No Known Problems Procedures Procedure Date OV, New Pt, Level III Evoked Otoacoustic Emissns; Co Comp Audiometry Threshold Eval Tympanometry Advance Directives Directive Yes / No Effective Date File Name No Information Encounters Encounter Description Practice Location Reason(s) For Visit Diagnoses Date Provider Providers Copied on Encounter [facility], [address], [place], [place], [id number] , tel: [phone] [facility] No Information 4 Milena Alvarez. [address], [address], [place], [place], [id number], [place]. tel:[phone] OV, New Pt, Level III [facility], [address], [place], [place], [id number] , tel: [phone] [facility] ear issues (chief complaint) Pulsatile tinnitusSnsrnrl hear loss, uni, left ear, w unrestr hear cntra side 3 Milena Alvarez. [address], [place], [place], [id number], [place]. tel:[phone] [facility], [address], [place], [place], [id number] , [place] tel: [phone] [facility] Pulsatile tinnitus, left ear 3 Shanthi Landaverde. [address], [address], [place], [place], [id number], [place]. tel:[phone] Referring Provider: [facility], [address], [place], [address]. tel:[phone] Family History Family Member Type Diagnosis Age At Onset Problem (finding) Family History of Heart disease Problem (finding) Family History of Heari ng Deficiency Problem (finding) Family History of Depre ssion Problem (finding) Family History of Irritable Bowel Syndrome Problem (finding) Family History of Alcoh olism Family H /O Problem (finding) Alzheimer's Disease Problem (finding) Family History of Cance r - Colon Problem (finding) Family History of Alzhe luz elena's Disease Problem (finding) Family History of Asthm a Problem (finding) Family History of Hyper tension Immunizations Vaccine Date Status Comments Influenza unspecified formulation completed Note: patient only r eported on this date, was given elsewhere ; Source: Source Unspecified Payers Payer name Insurance type Covered democrat ID Authoriza ticarline(s) [employer] [id number] Social History Type Description Quantity Date Captured Comments Sex Male Smoking Status No Information Sexual Orientation Choose not to disclose Chief Complaint And Reason For Visit No Information Reason For Referral Reason For Referral No Information History Of Present Illness Encounter Date Complaint History Of Prese nt Illness ear issues He has been havi ng left sided pulsatile tinnitus when laying supine for the past 6 weeks. Has mild aural fullness as well as mild discomfort. Denies otorrhea, ear surgery, vertigo, or changes in hearing.Of note, his symptoms began after he had a testicular denervation procedure done for chronic pain after vasectomy. He also has been taking various medications for neuropathic pain. Functional Status Date Functional Assessmen t No Information Instructions Date Instruction Additional Infor nela Get imaging done once approved R elated to Pulsatile tinnitus Assessments Type Assessment Date No Information Patient Care Teams Name Effective Dates (start - stop) Status Members No Information
[2024-11-18 22:21] VITALS: BP 115/76; PULSE 86; RESP 18; TEMP 36.8; O2SAT 95; BMI 32.3
--- NOTE | 2024-11-18 22:32 | PC.NURSE ---
Rounded with PT. PT has a dx of acid reflux, compliant with meds. Denies liver issues. Deneis further needs at this time.
[2024-11-18 22:33] LABS: Coronavirus 19, PCR Not Detected (NotDetected); Influenza A, PCR Not Detected (NotDetected); Influenza B, PCR Not Detected (NotDetected)
--- OUTSIDE RECORDS SUMMARY | 2024-11-18 22:36 | XMS_ITS | Clinical Summary ---
Author Organization [facility] Address [address] [id number] Care Team Providers Care Test Hole Driller Name Role Phone Tarsha Escobar MD Primary Care Provider [phone] Family History Medical History Relation Name Comments Conversions - Other Father's Brother 1 AI CD (automatic cardioverter/defibrillator) present Brain cancer Father's Brother 2 Conversions - Other Maternal Cousin 1 AIC D (automatic cardioverter/defibrillator) present Cardiomyopathy Maternal Cousin 2 Breast cancer Mother Stomach cancer Paternal Grandmother Relation Name Status Comments Father's Brother 1 Father's Brother 2 Maternal Cousin 1 Maternal Cousin 2 Mother Paternal Grandmother Social History Tobacco Use Types Packs/Day Years Used Date Smoking Tobacco: Never Alcohol Use Standard Drinks/Week Comments No 0 (1 standard drink = 0.6 oz pur e alcohol) Sex and Gender Information Value Date Recorded Sex Assigned at Not on file Legal Sex Male 6:48 PM EDT Gender Identity Not on file Sexual Orientation Not on file Last Filed Vital Signs Vital Sign Reading Time Taken Comments Blood Pressure 115/78 01/11/2018 10:57 AM EDT Pulse 60 01/11/2018 10:57 AM EDT Temperature 36.8 C (98.3 F) 11/30/2017 10:51 AM EDT Respiratory Rate 16 11/30/2017 10:51 AM EDT Oxygen Saturation - - Inhaled Oxygen Concentration - - Weight 90.7 kg (200 lb) 01/11/2018 10:57 AM EDT Height 177.8 cm (5' 10 ) 11/30/2017 10:51 AM EDT Body Mass Index 28.7 11/30/2017 10:51 AM EDT Plan of Treatment Health Maintenance Due Date Last Done Comments [facility]-Depression Screening 1984 [facility]-Infant/Child/Adol SDOH Screenings 1984 [facility]-Varicella Vaccines (1 of 2 - 13+ 2-dose series) 1997 HPV Vaccines (1 - Male 3-dose series) 1999 [facility]- SDOH Screenings 2002 [facility]-Adult SDOH Screenings 2002 [facility]-Hepatitis B Vaccines (1 of 3 - 19+ 3-dose series) 2003 [facility]-[id number] Vaccine (2 - 2023- season) 2024 09/22/2021 [facility]-Influenza Vaccine (#1) 01/15/202502/09, 05/05/2017 [facility]-DTaP,Tdap,and Td Vaccines (3 - Td or Tdap) 11/20/2026 11/20/2016, 07/25/1999 [facility]-Zoster Vaccines (1 of 2) 2034 [facility]-HIB Vaccines Aged Out No longer e ligible based on patient's age to complete this topic [facility]-Hepatitis A Vaccines Aged Out No longer eligible based on patient's age to complete this topic [facility]-IPV Vaccines Aged Out No longer e ligible based on patient's age to complete this topic [facility]-Pneumococcal Vaccine: Pediatrics (0 to 5 Years) and At-Risk Patients (6 to 49 Years) Aged Out No longer eligible b ased on patient's age to complete this topic [facility]-Rotavirus Vaccines Aged Out No lo nger eligible based on patient's age to complete this topic Medical Devices Implanted Type Area Inspector Repairer [place] Device Identifier Shelf Expiration Date Model / Serial / Lot [id number] [employer]wick 4-Site Sg [id number] Lead [id number] RELIANCE 4-SITE / [id number] / [id number] Yasir [id number] Implanted:09/15 (Quantity not on file) Pacemaker D150 YASIR / [id number] / Insurance MEDICAID Care Teams Test Hole Driller Relationship Specialty Start Date End Date Tarsha Escobar MD PCP - General 09/27/20
[2024-11-18 22:43] LABS: Strep Scrn Group A (Rapid) Negative (Negative)
--- NOTE | 2024-11-18 23:05 | ED_ITS ---
Discharge Plan Disposition Patient Disposition: Home, Self-Care Prescriptions Prescriptions: No Action omeprazole 20 mg capsule,delayed release(DR/EC) 20 mg PO BID Qty: 30 2RF cetirizine [Zyrtec] 10 mg tablet 10 mg PO DAILY PRN (Reason: allergy symptoms) Qty: 30 2RF topiramate [Topamax] 50 mg tablet 50 mg PO DAILY Qty: 30 2RF albuterol sulfate 90 mcg/actuation HFA aerosol inhaler 1 inh inhalation Q4H PRN (Reason: shortness of breath or wheezing) Qty: 8.5 0RF atorvastatin 20 mg tablet 20 mg PO DAILY Patient Comments: TAKE 1 TABLET BY MOUTH EVERY NIGHT metoprolol succinate 100 mg tablet extended release 24 hr 100 mg PO DAILY Patient Comments: TAKE 1 TABLET BY MOUTH DAILY duloxetine 60 mg capsule,delayed release(DR/EC) 60 mg PO DAILY Patient Comments: TAKE 1 CAPSULE BY MOUTH DAILY ondansetron 8 mg tablet,disintegrating 8 mg PO TID PRN (Reason: Nausea) Qty: 30 0RF Referrals Follow up/Referrals: Alex Rendon MD [Primary Care Provider, Family Practice] - See instructions Activity Restrictions/Add. Instructions Additional Instructions/Restrictions: You have what seems to be a viral infection of the throat. Please follow-up with your PCP as needed. Please take Tylenol and ibuprofen as needed for pain. Please try to keep hydrated. Clinical Impressions Clinical Impression: Laryngitis Print Language Print Language: Icelandic Discharge ED Provider: Vasyl Parada Adult HPI General Chief complaint: Fever Stated complaint: cough,sore throat,fever Time Seen by Provider: 11/18/24 23:00 Mode of Arrival: Ambulatory Source of Information: Patient and Relative Description of Symptoms (Recalled from ER Triage Doc. by RN): Pt presents for evaluation of sore throat, cough chills x 5days History of Present Illness HPI narrative: 39-year-old male presents for loss of voice, sore throat, chills over the last several days. Reports that he has felt hot but has not checked his temperature at home. He reports that he has had this once before. He reports chronic headaches and has an AICD in place. Reports that it hurts to swallow but he has been able to stay hydrated and eat. He reports no pain with movement of the neck. Related Data Home Medications ?Medication ?Instructions ?Recorded ?Confirmed atorvastatin 20 mg tablet 20 mg PO DAILY Cholesterol 1 11/18/24 duloxetine 60 mg capsule,delayed 60 mg PO DAILY Depres av 03/12/23 11/18/24 release metoprolol succinate 100 mg 100 mg PO DAILY Hypertensi on 03/12/23 11/18/24 tablet,extended release 24 hr Previous Rx's ?Medication ?Instructions ?Recorded ondansetron 8 mg disintegrating 8 mg PO TID PRN Nausea #30 tabs 01/08/24 tablet albuterol sulfate 90 mcg/actuation 1 inh inhalation Q4 H PRN shortness 01/23/24 aerosol inhaler of breath or wheezing #8.5 g michael omeprazole 20 mg capsule,delayed 20 mg PO BID #30 caps 02/03/24 release topiramate 50 mg tablet (Topamax) 50 mg PO DAILY #30 t abs 04/06/24 cetirizine 10 mg tablet (Zyrtec) 10 mg PO DAILY PRN al lergy 11/16/24 symptoms #30 tabs Allergies Allergy/AdvReac Type Severity Reaction Status Date / Time Penicillins (PENICILLINS) Allergy Unknown Hives Verified 11/18/24 22:40 Sulfa (Sulfonamide Allergy Unknown Hives Verified 11/18/24 22:40 Antibiotics) (SULFA (SULFONAMIDE ANTIBIOTICS)) [facility] Disclaimer: The information contained in this section may have been updated after the patient was seen, as this information can be updated by other users. Medical History Vocal cord edema Dry mouth Throat clearing Hoarseness History of kidney stones Viral syndrome Cerumen impaction Calculus of kidney Ureteral calculi Patient underwent left ureteroscopy stone extraction and left stent placement on 315. He was admitted overnight for observation and on postop day 1 was feeling well and was ready for discharge. 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 caffeine: Yes Have you lived/traveled outside US in past 30 days?: No Contact w/someone who lives/traveled outside US past 30 days?: No Exposure to someone with infectious disease in past 14 days?: No Do you have a fever (greater than 100.4 F or 38 C)?: No Have you tested positive for COVID-19?: No Exposed to someone with COVID-19 in past 14 days?: No Do you have a sore throat?: No Do you have a cough?: No Do you have any weakness?: No Do you have any diarrhea?: No Are you experiencing any unusual bleeding?: No Do you have any muscle aches/pain?: No Do you have any abdominal pain?: No Are you experiencing loss of taste or smell?: No Other Medical History Have you received the Flu Vaccine for this season: No Have you received the Pneumonia Vaccine: No ROS Obtained: Yes All systems reviewed & no additional complaints except as documented Physical Exam General General appearance: alert and in no apparent distress Head Head exam: atraumatic and normocephalic Eye Eye exam: Present normal appearance, PERRL and EOMI ENT ENT exam: Present other (Posterior oropharynx is erythematous with cobblestoning. Tonsils are surgically absent. No peritonsillar or retropharyngeal swelling. No pain with range of motion of the neck.) Neck Neck exam: Present normal inspection, full ROM and trachea midline; Absent tenderness or meningismus Chest Chest inspection: Present normal inspection and symmetric chest wall rise; Absent tenderness Respiratory Respiratory exam: Present normal lung sounds bilaterally; Absent respiratory distress Cardiovascular Cardiovascular exam: Present regular rate and normal rhythm Abdominal Exam Abdominal exam: Present soft; Absent distention, tenderness or guarding Extremities Exam Extremities exam: Present normal inspection; Absent edema or joint swelling Back Exam Back exam: Present normal inspection; Absent tenderness Neurological Exam Neurological exam: Present alert and oriented X3; Absent motor sensory deficit Psychiatric Psychiatric exam: Present normal affect and normal mood Skin Skin exam: Present warm, dry and normal color Lymphatic Lymphatic Findings: no adenopathy Medical Decision Making Medical Records Medical records reviewed: Yes I reviewed the patient's medical records. Screening: Per USPSTF and CDC recommendations, given the prevalence of disease in our region, it is our hospital?s policy to screen for HIV and viral Hepatitis for all patients aged 18 and over and those with ongoing risk factors. Nael Inquiry Pt receiving controlled substance: No Nael was queried for this patient: No Vital Signs: 11/18/24 22:21 11/18/24 23:26 11/18/24 23:27 Temperature 98.3 F 98.0 F 98.0 F Temperature Source Oral Oral Pulse Rate 77 77 Pulse Rate [Right] 86 Respiratory Rate 18 16 16 Blood Pressure 139/87 139/87 Blood Pressure [Right Arm] 115/76 Blood Pressure Mean 104 Blood Pressure Mean [Right Arm] 89 Blood Pressure Source [Right Arm] Automatic Cuff Blood Pressure Position Supine Blood Pressure Position [Right Arm] Sitting 02 Sat by Pulse Oximetry 95 97 Oxygen Delivery Method Room Air 11/18/24 23:28 Temperature 98.5 F Temperature Source Pulse Rate 96 H Pulse Rate [Right] Respiratory Rate 16 Blood Pressure 139/84 Blood Pressure [Right Arm] Blood Pressure Mean Blood Pressure Mean [Right Arm] Blood Pressure Source [Right Arm] Blood Pressure Position Blood Pressure Position [Right Arm] 02 Sat by Pulse Oximetry Oxygen Delivery Method Room Air Lab Data Lab results reviewed: Yes I reviewed the patient's lab results. Lab Results 11/18/24 22:30: SARS-CoV-2 (PCR) Not detected, Influenza A Untype (PCR) Not detected, Influenza Type B (PCR) Not detected, Group A Strep Rapid Negative Orders (Tests/Meds): ED MEDICATIONS Discontinued Medications Generic Name Dose Route Start Last Admin Trade Name Freq PRN Reason Stop Dose Admin Dexamethasone Sodium Phosphate 10 mg 11/18/24 23:06 11/18/24 23:19 Dexamethasone 4mg/Ml 1ml Vial IM 11/18/24 23:07 10 mg ONCE ONE Administration Lidocaine HCl 15 ml 11/18/24 23:06 11/18/24 23:19 Lidocaine 2% Viscous Roslyn 15ml Udc PO 11/18/24 23:07 15 ml ONCE ONE Administration ORDERS Category Date Time Status Rapid PCR Covid and Flu A/B Stat Lab 11/18/24 22:30 Completed Strep Scrn Group A (Rapid) Stat Lab 11/18/24 22:30 Completed Strep Screen Confirmation Stat Micro 11/18/24 22:30 Received Medical Decision Narrative: 39-year-old male presents for several days of sore throat and loss of voice.. History was obtained via interactive discussion with patient, family, chart. On arrival, patient is [afebrile, hemodynamically stable, satting appropriately, alert, oriented x4, GCS 15], moving all extremities spontaneously. Full physical exam performed and significant for posterior oropharyngeal erythema and cobblestoning without exudate, tonsillar swelling, peritonsillar swelling or difficulty with range of motion of the neck. Differential includes but is not limited to laryngitis, bacterial/viral pharyngitis, RPA, SWIMMING COACH. Patient was given Decadron and viscous lidocaine for symptomatic management and correction of underlying abnormalities. Workup initiated including strep swab, viral swab. On re-evaluation, patient [remains afebrile, HD stable.] Laboratory workup independently interpreted by me and significant for negative strep swab,. CT imaging of the neck to evaluate for abscess was considered, but deemed unnecessary due to physical exam.. Given patient history, exam and workup, patient's presentation most likely represents viral pharyngitis. These findings were communicated to patient and he was discharged in stable condition with return precautions and instructions regarding symptomatic care.. Procedures Risk/Benefits of Procedure(s) Were Explained: Yes Critical Care Critical Care Time Critical Care Time: No
[2024-11-18] MEDS: DEXAMETHASONE 4MG/ML 1ML VIAL 10 MG IM (23:19)
[2024-11-18] MEDS: LIDOCAINE 2% VISCOUS SOL 15ML UDC 15 ML PO (23:19)
[2024-11-18 23:26] VITALS: BP 139/87; PULSE 77; RESP 16; TEMP 36.7; O2SAT 97
[2024-11-18 23:27] VITALS: BP 139/87; PULSE 77; RESP 16; TEMP 36.7; O2SAT 97
[2024-11-18 23:28] VITALS: BP 139/84; PULSE 96; RESP 16; TEMP 36.9; O2SAT 96
== END 2024-11-18 23:30 | disposition home or self-care (01) ==
PROVIDERS: Student in an Organized Health Care Education/Training Program; Emergency Provider Emergency Medicine; PCP Family Medicine
DX: J04.0 Acute laryngitis (principal); R07.0 Pain in throat
CPT/HCPCS: 87430; 87636; 96372; 99283; J1100

== ENCOUNTER 2024-11-21 10:07 | Emergency (ER) | payer MEDICAID, SELFPAY ==
--- OUTSIDE RECORDS SUMMARY | 2024-11-21 10:14 | XMS_ITS | Clinical Summary ---
Author Organization [facility] Address [address] [id number] Care Team Providers Care Seat Mender Name Role Phone Tarsha Escobar MD Primary Care Provider [phone] Family History Medical History Relation Name Comments [...] of 3 - 19+ 3-dose series) 2003 [id number] Vaccine (2 - 2023- season) 2024 09/22/2021 [...] this topic Medical Devices Implanted Type Area Biomedical Field Service Engineer Device Identifier Shelf Expiration Date Model / Serial / Lot [id number] [place] 4-Site Sg [id number] Lead [id number] RELIANCE 4-SITE / [id number] / [id number] Yasir [id number] Implanted:09/15 (Quantity not on file) Pacemaker D150 YASIR / [id number] / Insurance MEDICAID Care Teams Seat Mender Relationship Specialty Start Date End Date Tarsha Escobar MD PCP - General 09/27/20
[2024-11-21 10:16] VITALS: BP 129/69; PULSE 75; RESP 18; TEMP 37.1; O2SAT 96; BMI 31.7
--- NOTE | 2024-11-21 10:23 | ED_ITS ---
<Statement entered by Estefani Collins MD - 11/21/24 15:22> I was consulted by the CYNTHIA, and we discussed the complexity of the problems being addressed. I approved the treatment and management plan for this patient's care in the emergency department, thus performing a substantive portion of the medical decision making. Estefani Collins MD, MARYCHUY, FACEP Discharge Plan Disposition Patient Disposition: Home, Self-Care Condition: Good Prescriptions Prescriptions: New albuterol sulfate 90 mcg/actuation HFA aerosol inhaler 1 inh inhalation Q4H PRN (Reason: shortness of breath or wheezing) Qty: 8.5 0RF azithromycin 250 mg tablet See Rx Instructions .ROUTE .COMPLEX Qty: 6 0RF Rx Instructions: For 500 mg dose pack: take 500 mg once daily for 3 days prednisone 50 mg tablet 50 mg PO DAILY 5 Days Qty: 5 0RF [id number] [Bromfed DM] 2-30-10 mg/5 mL syrup 5 ml PO Q4H PRN (Reason: sinus symptoms) Qty: 118 0RF No Action omeprazole 20 mg capsule,delayed release(DR/EC) 20 mg PO BID Qty: 30 2RF cetirizine [Zyrtec] 10 mg tablet 10 mg PO DAILY PRN (Reason: allergy symptoms) Qty: 30 2RF topiramate [Topamax] 50 mg tablet 50 mg PO DAILY Qty: 30 2RF albuterol sulfate 90 mcg/actuation HFA aerosol inhaler 1 inh inhalation Q4H PRN (Reason: shortness of breath or wheezing) Qty: 8.5 0RF atorvastatin 20 mg tablet 20 mg PO DAILY Patient Comments: TAKE 1 TABLET BY MOUTH EVERY NIGHT metoprolol succinate 100 mg tablet extended release 24 hr 100 mg PO DAILY Patient Comments: TAKE 1 TABLET BY MOUTH DAILY duloxetine 60 mg capsule,delayed release(DR/EC) 60 mg PO DAILY Patient Comments: TAKE 1 CAPSULE BY MOUTH DAILY ondansetron 8 mg tablet,disintegrating 8 mg PO TID PRN (Reason: Nausea) Qty: 30 0RF Referrals Follow up/Referrals: Alex Rendon MD [Primary Care Provider, Family Practice] - See instructions Activity Restrictions/Add. Instructions Additional Instructions/Restrictions: I sent antibiotic into your pharmacy. Please take it till it is gone. If you still have symptoms have any new or worsening signs or symptoms follow-up with your PCP return to the ER as needed. Clinical Impressions Clinical Impression: Laryngitis, Acute lower respiratory tract infection Print Language Print Language: Ukrainian Discharge ED Provider: Estefani Collins General Adult HPI General Chief complaint: PAIN Stated complaint: sore throat, unable to talk, cough, congestion Time Seen by Provider: 11/21/24 10:23 Mode of Arrival: Ambulatory Source of Information: Patient Description of Symptoms (Recalled from ER Triage Doc. by RN): Pt reports cough, congestion, sore throat for 8 days. Pt states he was just seen in ER and given steroids for laryngitis, without improvement. History of Present Illness HPI narrative: Patient presents for evaluation of hoarse voice with sore throat congestion. Patient gives an 8-day history of nasal congestion sore throat dry nonproductive pervasive cough. He has been seen by an urgent treatment center as well as in the ER here on 11/18/2024. He has had a COVID flu and strep swabs that were all negative given IM steroids however patient states that he has had no improvement. The cough is disturbing his sleep. He denies any fever chills hemoptysis hematochezia melena nausea vomiting or diarrhea. Patient does have a significant past medical history of penicillin and sulfa allergies, frequent migraines, congenital heart disease with an AICD. Related Data Home Medications ?Medication ?Instructions ?Recorded ?Confirmed atorvastatin 20 mg tablet 20 mg PO DAILY Cholesterol 1 11/21/24 duloxetine 60 mg capsule,delayed 60 mg PO DAILY Depres av 03/12/23 11/21/24 release metoprolol succinate 100 mg 100 mg PO DAILY Hypertensi on 03/12/23 11/21/24 tablet,extended release 24 hr Previous Rx's ?Medication ?Instructions ?Recorded ondansetron 8 mg disintegrating 8 mg PO TID PRN Nausea #30 tabs 01/08/24 tablet albuterol sulfate 90 mcg/actuation 1 inh inhalation Q4 H PRN shortness 01/23/24 aerosol inhaler of breath or wheezing #8.5 g michael omeprazole 20 mg capsule,delayed 20 mg PO BID #30 caps 02/03/24 release topiramate 50 mg tablet (Topamax) 50 mg PO DAILY #30 t abs 04/06/24 cetirizine 10 mg tablet (Zyrtec) 10 mg PO DAILY PRN al lergy 11/16/24 symptoms #30 tabs albuterol sulfate 90 mcg/actuation 1 inh inhalation Q4 H PRN shortness 11/21/24 aerosol inhaler of breath or wheezing #8.5 g michael azithromycin 250 mg tablet See Rx Instructions PO .COM PLEX #6 11/21/24 tabs [id number]-uhozqaggveolmqh-SS 5 ml PO Q4H PRN sin us symptoms 11/21/24 2 mg-30 mg-10 mg/5 mL oral syrup #118 mL (Bromfed DM) prednisone 50 mg tablet 50 mg PO DAILY 5 days #5 tab s 11/21/24 Allergies Allergy/AdvReac Type Severity Reaction Status Date / Time Penicillins (PENICILLINS) Allergy Unknown Hives Verified 11/18/24 22:40 Sulfa (Sulfonamide Allergy Unknown Hives Verified 11/18/24 22:40 Antibiotics) (SULFA (SULFONAMIDE ANTIBIOTICS)) [facility] Disclaimer: The information contained in this section may have been updated after the patient was seen, as this information can be updated by other users. Medical History Vocal cord edema Dry mouth Throat clearing Hoarseness History of kidney stones Viral syndrome Cerumen impaction Calculus of kidney Ureteral calculi Patient underwent left ureteroscopy stone extraction and left stent placement on 315. He was admitted overnight for observation and on postop day 1 was feeling well and was ready for discharge. 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 caffeine: Yes Have you lived/traveled outside US in past 30 days?: No Contact w/someone who lives/traveled outside US past 30 days?: No Exposure to someone with infectious disease in past 14 days?: No Do you have a fever (greater than 100.4 F or 38 C)?: No Have you tested positive for COVID-19?: No Exposed to someone with COVID-19 in past 14 days?: No Do you have a sore throat?: No Do you have a cough?: No Do you have any weakness?: No Do you have any diarrhea?: No Are you experiencing any unusual bleeding?: No Do you have any muscle aches/pain?: No Do you have any abdominal pain?: No Are you experiencing loss of taste or smell?: No Other Medical History Have you received the Flu Vaccine for this season: No Have you received the Pneumonia Vaccine: No ROS Obtained: Yes Systems reviewed as appropriate & no additional complaints except as documented Physical Exam General General appearance: alert and in no apparent distress Respiratory Respiratory exam: Present normal lung sounds bilaterally Cardiovascular Cardiovascular exam: Present regular rate Neurological Exam Neurological exam: Present alert and oriented X3 Medical Decision Making Medical Records Medical records reviewed: Yes I reviewed the patient's medical records. Screening: Per USPSTF and CDC recommendations, given the prevalence of disease in our region, it is our hospital?s policy to screen for HIV and viral Hepatitis for all patients aged 18 and over and those with ongoing risk factors. Nael Inquiry Pt receiving controlled substance: No Vital Signs: 11/21/24 10:16 11/21/24 10:31 11/21/24 11:00 Temperature 98.7 F Temperature Source Oral Pulse Rate 74 72 Pulse Rate [Left] 75 Respiratory Rate 18 Blood Pressure 114/83 123/85 Blood Pressure [Right Arm] 129/69 Blood Pressure Mean [Right Arm] 89 Blood Pressure Source [Right Arm] Automatic Cuff 02 Sat by Pulse Oximetry 96 95 99 Oxygen Delivery Method Room Air Room Air Room Air 11/21/24 11:30 11/21/24 12:00 11/21/24 12:48 Temperature 98.9 F Temperature Source Pulse Rate 71 81 71 Pulse Rate [Left] Respiratory Rate 16 Blood Pressure 104/52 L 122/78 124/78 Blood Pressure [Right Arm] Blood Pressure Mean [Right Arm] Blood Pressure Source [Right Arm] 02 Sat by Pulse Oximetry 95 97 Oxygen Delivery Method Room Air Room Air Lab Data Lab results reviewed: Yes I reviewed the patient's lab results. Lab Results 11/21/24 10:58: Chlamy pneumoniae PCR Not detected, Adenovirus (PCR) Not detected, B. pertussis DNA (PCR) Not detected, Coronavirus OC43 (PCR) Not detected, Coronavirus HKU1 (PCR) Not detected, Coronavirus 229E (PCR) Not detected, SARS-CoV-2 (PCR) Not detected, Coronavirus NL63 (PCR) Not detected, Human Metapneumovir PCR Not detected, Influenza A (H1) PCR Not detected, Influ A (H1N1/09) PCR Not detected, Influenza A (H3) PCR Not detected, Influenza Type A (PCR) Not detected, Influenza Type B (PCR) Not detected, M. pneumoniae (PCR) Not detected, Parainfluenza 1 (PCR) Not detected, Parainfluenza 2 (PCR) Not detecte d, Parainfluenza 3 (PCR) Not detected, Parainfluenza 4 (PCR) Not detected, RSV (PCR) Not detected, Entero/Rhino (PCR) Not detected Orders (Tests/Meds): ED MEDICATIONS Discontinued Medications Generic Name Dose Route Start Last Admin Trade Name Freq PRN Reason Stop Dose Admin Albuterol/Ipratropium 3 ml 11/21/24 10:31 11/21/24 10:46 Ipratropium/Albuterol 3 Ml Neb IH 11/21/24 10:32 3 ml ONCE ONE Administration Azithromycin 500 mg 11/21/24 10:31 11/21/24 10:46 Azithromycin 250mg Tablet PO 11/21/24 10:32 500 mg ONCE ONE Administration Benzonatate 100 mg 11/21/24 10:45 11/21/24 10:45 Benzonatate 100mg Capsule PO 12/21/24 10:44 100 mg ONCE SARAH Administration Chlorpheniramine Maleate 4 mg 11/21/24 10:31 11/21/24 10:49 Chlorpheniramine 4mg Tablet PO 11/21/24 10:32 4 mg ONCE ONE Administration Ondansetron HCl 4 mg 11/21/24 12:38 11/21/24 12:45 Ondansetron 4mg Odt SL 11/21/24 12:39 4 mg ONCE ONE Administration Prednisone 60 mg 11/21/24 10:31 11/21/24 10:46 Prednisone 20mg Tab PO 11/21/24 10:32 60 mg ONCE ONE Administration ORDERS Category Date Time Status XR chest 2V Stat Exams 11/21/24 10:33 Completed Full Resp Panel w/COVID ([facility]) Routine Lab 11/21/24 10:58 Completed Medical Decision Narrative: In summary patient is a 39-year-old male who presents to the emergency department for evaluation of 8 days of dry nonproductive cough and laryngitis. Patient is hemodynamically stable upon arrival, afebrile. Physical exam is remarkable for normal posterior pharynx however there is cobblestoning, his lips are dry and cracked, breath sounds clear and equal bilaterally to the bases without adventitious sounds accessory muscle use or increased work of breathing, patient has a coarse dry sounding cough, patient has no cervical lymphadenopathy.. Differential diagnosis includes laryngitis versus possible pertussis or other viral pathogen versus possible pneumonia Cetera. Initial workup will be conducted with plain film chest x-ray full respiratory panel. Initial interventions include DuoNeb prednisone Tessalon chlorpheniramine and azithromycin. Initial workup reviewed by me and my informal interpretation of his plain film chest x-ray shows no acute pulmonary processes prior to radiology read. Please see final read formal interpretation. Upon repeat evaluation patient reported improvement in his symptoms after initial intervention. Given this patient is appropriate for discharge with prescription for 5 days of prednisone Bromfed and azithromycin. If patient has persistent new or worsening signs symptoms follow-up with PCP return to the ER as needed. Critical Care Critical Care Time Critical Care Time: No
[2024-11-21 10:31] VITALS: BP 114/83; PULSE 74; O2SAT 95
--- NOTE | 2024-11-21 10:33 | XR_ITS ---
FINAL REPORT CLINICAL HISTORY: 8 days of cough FINDINGS: 2 views of the chest were obtained . The heart is mildly enlarged. A pacemaker is in place. The mediastinum is within normal limits. The lungs are clear. There is no pneumothorax. Osseous structures are unremarkable. IMPRESSION: No acute cardiopulmonary process. Reviewed, Interpreted and Dictated by Augusto Perea MD Transcribed by Selena Roberts Authenticated and [facility]
[2024-11-21] MEDS: BENZONATATE 100MG CAPSULE 100 MG PO (10:45)
[2024-11-21] MEDS: IPRATROPIUM/ALBUTEROL 3 ML NEB IH (10:46)
[2024-11-21] MEDS: AZITHROMYCIN 250MG TABLET 500 MG PO (10:46)
[2024-11-21 11:00] VITALS: BP 123/85; PULSE 72; O2SAT 99
[2024-11-21 11:02] LABS: Adenovirus,PCR Not Detected (NotDetected); Chlamydophila Pneumoniae, PCR Not Detected (NotDetected); Coronavirus 19, PCR Not Detected (NotDetected); Coronovirus HKU1,PCR Not Detected (NotDetected); Influenza A, PCR Not Detected (NotDetected); Influenza AH1, 2009 Not Detected (NotDetected); Influenza AH1, PCR Not Detected (NotDetected); Influenza AH3,PCR Not Detected (NotDetected); Influenza B, PCR Not Detected (NotDetected); Mycoplasma Pneumoniae, PCR Not Detected (NotDetected); Parainfluenza 1, PCR Not Detected (NotDetected); Parainfluenza 2, PCR Not Detected (NotDetected); Parainfluenza 3, PCR Not Detected (NotDetected); Parainfluenza 4, PCR Not Detected (NotDetected)
[2024-11-21 11:30] VITALS: BP 104/52; PULSE 71; O2SAT 95
--- NOTE | 2024-11-21 11:54 | PC.NURSE ---
Received report from RAMILA Soto.
[2024-11-21 12:00] VITALS: BP 122/78; PULSE 81; O2SAT 97
--- NOTE | 2024-11-21 12:35 | PC.NURSE ---
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
[2024-11-21] MEDS: ONDANSETRON 4MG ODT 4 MG SL (12:45)
[2024-11-21 12:48] VITALS: BP 124/78; PULSE 71; RESP 16; TEMP 37.2; O2SAT 95
== END 2024-11-21 12:49 | disposition home or self-care (01) ==
PROVIDERS: Physician Assistant; Emergency Provider Student in an Organized Health Care Education/Training Program; PCP Family Medicine
DX: J04.0 Acute laryngitis (principal); J22 Unspecified acute lower respiratory infection
CPT/HCPCS: 0223U; 71046; 87633; 99284; Q0162